=== PATIENT | male | born 1945 | race Caucasian/White ===

== ENCOUNTER 2016-11-17 15:03 | Emergency (ER) | payer MEDICARE, OTHER ==
[~2016-11-17] VITALS: Ht 172.7 cm; Wt 63.5 kg
[~2016-11-17 15:03] MED LIST: DIAZ5TAB3; IBUP600T27; PHE100C PO
[2016-11-17 18:40] VITALS: BP 133/69
== END 2016-11-17 19:10 | disposition home or self-care (01) ==
LOC: ER 15:08
DX: S01.81XA Laceration without foreign body of other part of head, initial encounter (principal); W19.XXXA Unspecified fall, initial encounter; Y93.89 Activity, other specified; Y99.8 Other external cause status; Y92.89 Other specified places as the place of occurrence of the external cause
CPT/HCPCS: 12011; 82962

== ENCOUNTER 2017-03-04 20:47 | Emergency (ER) | payer MEDICARE, OTHER ==
[~2017-03-04] VITALS: Ht 165.1 cm; Wt 59.0 kg
[2017-03-05 04:04] LABS: Basophils # (auto) 0.1 uL; Basophils % (auto) 0.8 % (0.0-2.0); Eosinophils # (auto) 0.2 uL; Eosinophils % (auto) 1.9 % (0.0-7.0); Hematocrit 37.7 % (41.0-53.0); Hemoglobin 12.9 g/dL (13.5-17.5); Lymphocytes # (auto) 2.5 uL; Lymphocytes % (auto) 24.6 % (10.0-50.0); Mean Corpuscular Hemoglobin 30.6 pg (28.0-32.0); Mean Corpuscular Hgb Conc. 34.2 g/dL (32.0-36.0); Mean Corpuscular Volume 89.5 fL (80.0-100.0); Monocytes # (auto) 1.3 uL; Monocytes % (auto) 12.3 % (0.0-12.0); Neutrophils # (auto) 6.3 uL; Neutrophils % (auto) 60.4 % (37.0-80.0); Nucleated Red Blood Cells % 0.1 %; Platelet Count (auto) 204 10^3/uL (140-450); Red Blood Cells 4.21 10^6/uL (4.5-5.90); Red Cell Distribution Width 13.8 % (11.8-14.3); White Blood Cell 10.3 10^3/uL (4.4-10.8)
[2017-03-05 04:27] LABS: Albumin 4.1 g/dL (3.4-5.0); Potassium 3.8 mmol/L (3.5-5.1)
[2017-03-05 04:34] VITALS: BP 147/74
[2017-03-05 04:35] LABS: BUN/Creatinine Ratio 22.5; Bilirubin, Total 0.4 mg/dL (0.2-1.0); Total Protein 8.3 g/dL (6.4-8.2)
[2017-03-05] MEDS ORDERED: PHENYTOIN SODIUM 100 MG CAP PO ONE (06:15)
== END 2017-03-05 06:13 | disposition home or self-care (01) ==
LOC: EDSEX 20:47 → EDBD 20:47 → ER 20:58
DX: G40.909 Epilepsy, unspecified, not intractable, without status epilepticus (principal)
CPT/HCPCS: 36415; 80053; 80185; 85025; 94761

== ENCOUNTER 2017-08-31 21:54 | Emergency (ER) | payer MEDICARE, OTHER ==
[~2017-08-31] VITALS: Ht 175.3 cm; Wt 59.0 kg
[2017-08-31] MEDS ORDERED: KETOROLAC TROMETH 30 MG/ML 1ML VIAL IV ONE (22:30)
[2017-08-31] MEDS ORDERED: ONDANSETRON HCL 4 MG/2 ML VIAL IV ONE (22:30)
[2017-08-31] MEDS ORDERED: SODIUM CHLORIDE 0.9% 1,000 ML IV ONE (22:30)
[2017-08-31] MEDS ORDERED: PANTOPRAZOLE 40 MG/10 ML VIAL IV ONE (22:30)
[2017-08-31 22:34] LABS: Basophils # (auto) 0.1 uL; Basophils % (auto) 0.6 % (0.0-2.0); Eosinophils # (auto) 0.4 uL; Eosinophils % (auto) 3.7 % (0.0-7.0); Hematocrit 35.7 % (41.0-53.0); Hemoglobin 12.1 g/dL (13.5-17.5); Lymphocytes # (auto) 2.2 uL; Lymphocytes % (auto) 22.8 % (10.0-50.0); Mean Corpuscular Hemoglobin 31.2 pg (28.0-32.0); Mean Corpuscular Hgb Conc. 33.9 g/dL (32.0-36.0); Monocytes # (auto) 1.3 uL; Monocytes % (auto) 13.1 % (0.0-12.0); Neutrophils # (auto) 5.8 uL; Neutrophils % (auto) 59.8 % (37.0-80.0); Platelet Count (auto) 164 10^3/uL (140-450); Red Blood Cells 3.87 10^6/uL (4.5-5.90); Red Cell Distribution Width 14.2 % (11.8-14.3); White Blood Cell 9.7 10^3/uL (4.4-10.8)
[2017-08-31 22:51] LABS: Albumin 3.4 g/dL (3.4-5.0); BUN/Creatinine Ratio 18.1; Bilirubin, Total 0.3 mg/dL (0.2-1.0); Calcium 8.4 mg/dL (8.5-10.1); Potassium 3.7 mmol/L (3.5-5.1); Total Protein 7.4 g/dL (6.4-8.2)
[2017-09-01 01:33] VITALS: BP 159/82
== END 2017-09-01 01:46 | disposition home or self-care (01) ==
LOC: EDBD 21:54 → ER 21:54
DX: K57.10 Diverticulosis of small intestine without perforation or abscess without bleeding (principal)
CPT/HCPCS: 36415; 74176; 80053; 85025; 96374; 96375; 99285; C9113; J1885; J2405; J7030; 93005

== ENCOUNTER 2017-10-07 10:48 | Emergency (ER) | payer MEDICARE, OTHER ==
[~2017-10-07] VITALS: Ht 177.8 cm; Wt 68.0 kg
[2017-10-07 14:18] VITALS: BP 138/69
== END 2017-10-07 14:30 | disposition home or self-care (01) ==
LOC: EDBD 10:48 → ER 10:48 → EDUNIT# 10:48 → ER 14:30
DX: S09.90XA Unspecified injury of head, initial encounter (principal); G40.909 Epilepsy, unspecified, not intractable, without status epilepticus; Z79.899 Other long term (current) drug therapy; Z86.73 Personal history of transient ischemic attack (TIA), and cerebral infarction without residual deficits; W18.39XA Other fall on same level, initial encounter; Y93.89 Activity, other specified; Y99.8 Other external cause status; Y92.89 Other specified places as the place of occurrence of the external cause
CPT/HCPCS: 70450; 73562; 82962

== ENCOUNTER 2017-10-08 12:00 | Emergency (ER) | payer MEDICARE, OTHER ==
[~2017-10-08] VITALS: Ht 172.7 cm; Wt 54.4 kg
[2017-10-08 13:58] LABS: Basophils # (auto) 0 uL; Basophils % (auto) 0.4 % (0.0-2.0); Eosinophils # (auto) 0 uL; Eosinophils % (auto) 0.1 % (0.0-7.0); Hematocrit 39.3 % (41.0-53.0); Hemoglobin 13.2 g/dL (13.5-17.5); Lymphocytes # (auto) 1.5 uL; Lymphocytes % (auto) 12.9 % (10.0-50.0); Mean Corpuscular Hemoglobin 30.7 pg (28.0-32.0); Mean Corpuscular Hgb Conc. 33.5 g/dL (32.0-36.0); Mean Corpuscular Volume 91.7 fL (80.0-100.0); Monocytes % (auto) 8.7 % (0.0-12.0); Neutrophils # (auto) 9.3 uL; Neutrophils % (auto) 77.9 % (37.0-80.0); Platelet Count (auto) 212 10^3/uL (140-450); Red Blood Cells 4.29 10^6/uL (4.5-5.90); Red Cell Distribution Width 13.6 % (11.8-14.3)
[2017-10-08 14:32] LABS: Albumin 4.3 g/dL (3.4-5.0); BUN/Creatinine Ratio 21.3; Calcium 9.2 mg/dL (8.5-10.1); Potassium 3.6 mmol/L (3.5-5.1)
[2017-10-08 14:40] LABS: Bilirubin, Total 0.5 mg/dL (0.2-1.0); Total Protein 8.9 g/dL (6.4-8.2)
[2017-10-08 15:55] VITALS: BP 93/69
== END 2017-10-08 15:47 | disposition home or self-care (01) ==
LOC: EDBD 12:00 → ER 12:00
DX: G40.909 Epilepsy, unspecified, not intractable, without status epilepticus (principal); Z86.73 Personal history of transient ischemic attack (TIA), and cerebral infarction without residual deficits
CPT/HCPCS: 36415; 70450; 80053; 80185; 85025

== ENCOUNTER 2017-11-04 13:31 | Inpatient (IN) | payer MEDICARE, OTHER ==
[~2017-11-04] VITALS: Ht 165.1 cm; Wt 44.7 kg
[2017-11-04 16:09] LABS: Basophils # (auto) 0.1 uL; Eosinophils # (auto) 0.3 uL; Eosinophils % (auto) 4.8 % (0.0-7.0); Hematocrit 35.2 % (41.0-53.0); Hemoglobin 11.8 g/dL (13.5-17.5); Lymphocytes % (auto) 30.2 % (10.0-50.0); Mean Corpuscular Hgb Conc. 33.4 g/dL (32.0-36.0); Mean Corpuscular Volume 92.8 fL (80.0-100.0); Monocytes # (auto) 0.7 uL; Neutrophils # (auto) 3.4 uL; Nucleated Red Blood Cells % 0.1 %; Platelet Count (auto) 187 10^3/uL (140-450); Red Cell Distribution Width 14.3 % (11.8-14.3); White Blood Cell 6.5 10^3/uL (4.4-10.8)
[2017-11-04 16:24] LABS: Albumin 3.6 g/dL (3.4-5.0); BUN/Creatinine Ratio 22.2; Calcium 8.5 mg/dL (8.5-10.1)
[2017-11-04 16:26] LABS: Bilirubin, Total 0.2 mg/dL (0.2-1.0); Total Protein 7.6 g/dL (6.4-8.2)
[2017-11-04] MEDS ORDERED: ONDANSETRON HCL 4 MG/2 ML VIAL IV PRN (22:00)
[2017-11-04] MEDS ORDERED: ACETAMINOPHEN 500 MG TAB PO PRN (22:00)
[2017-11-04] MEDS ORDERED: LORazepam 2MG/ML-1ML VIAL IV PRN ×2 (22:00→23:30)
[2017-11-04] MEDS ORDERED: MORPHINE SULF INJ 2 MG/ML SYRINGE 1ML IV PRN (22:00)
[2017-11-04] MEDS ORDERED: SOD CHL 0.45% 1,000 ML IV ONE (22:00)
[2017-11-04] MEDS ORDERED: HYDROcodone-ACET 5/325MG TAB PO PRN (22:00)
[2017-11-05 05:00] VITALS: BP 121/65
[2017-11-05 06:07] LABS: Basophils # (auto) 0.1 uL; Eosinophils # (auto) 0.4 uL; Eosinophils % (auto) 4.8 % (0.0-7.0); Hematocrit 34.1 % (41.0-53.0); Hemoglobin 11.5 g/dL (13.5-17.5); Lymphocytes # (auto) 1.9 uL; Lymphocytes % (auto) 26.5 % (10.0-50.0); Mean Corpuscular Hemoglobin 31.1 pg (28.0-32.0); Mean Corpuscular Hgb Conc. 33.7 g/dL (32.0-36.0); Monocytes # (auto) 0.7 uL; Monocytes % (auto) 9.3 % (0.0-12.0); Neutrophils # (auto) 4.3 uL; Neutrophils % (auto) 58.4 % (37.0-80.0); Nucleated Red Blood Cells % 0.1 %; Platelet Count (auto) 167 10^3/uL (140-450); Red Blood Cells 3.71 10^6/uL (4.5-5.90); Red Cell Distribution Width 14.2 % (11.8-14.3); White Blood Cell 7.3 10^3/uL (4.4-10.8)
[2017-11-05 06:24] LABS: BUN/Creatinine Ratio 20.7; Calcium 8.3 mg/dL (8.5-10.1); Potassium 3.8 mmol/L (3.5-5.1)
[2017-11-05] MEDS: PANTOPRAZOLE 40 MG/10 ML VIAL IV SCH (10:27)
[2017-11-05 13:00] VITALS: BP 127/63
[2017-11-05 16:54] VITALS: BP 117/63
[2017-11-05 21:48] VITALS: BP 138/61
[2017-11-06 08:29] VITALS: BP 128/58
[2017-11-06] MEDS: PANTOPRAZOLE 40 MG/10 ML VIAL IV SCH (10:00)
[2017-11-06 10:53] VITALS: BP 128/58
[2017-11-06] MEDS ORDERED: PHENYTOIN 100 MG/4 ML SUSP PO SCH (22:00)
[2017-11-06] MEDS ORDERED: PHENYTOIN SODIUM 100 MG CAP PO SCH (22:00)
== END 2017-11-06 12:44 | disposition home or self-care (01) | DRG 204 ==
LOC: EDBD 13:31 → ER 13:31 → TELE 13:32 → TELE-WESTW 23:50
PROVIDERS: ADMIT Nurse Practitioner Family; ATTEND Family Medicine
DX: R07.81 Pleurodynia (principal); I69.351 Hemiplegia and hemiparesis following cerebral infarction affecting right dominant side; G40.909 Epilepsy, unspecified, not intractable, without status epilepticus; T42.0X5A Adverse effect of hydantoin derivatives, initial encounter; G80.9 Cerebral palsy, unspecified; G51.0 Bell's palsy; F70 Mild intellectual disabilities; R29.6 Repeated falls; W06.XXXA Fall from bed, initial encounter; Y93.89 Activity, other specified; Y92.89 Other specified places as the place of occurrence of the external cause; Z82.49 Family history of ischemic heart disease and other diseases of the circulatory system; I69.322 Dysarthria following cerebral infarction; Z83.3 Family history of diabetes mellitus; Z84.89 Family history of other specified conditions; Z82.5 Family history of asthma and other chronic lower respiratory diseases; Z82.0 Family history of epilepsy and other diseases of the nervous system; Z82.3 Family history of stroke
CPT/HCPCS: 36415; 71111; 80048; 80053; 80185; 85025; 87081; 93005; 96360; C9113

== ENCOUNTER 2018-06-03 14:46 | Emergency (ER) | payer MEDICARE, OTHER ==
[~2018-06-03] VITALS: Ht 165.1 cm; Wt 59.0 kg
[2018-06-03 16:26] VITALS: BP 133/68
== END 2018-06-03 16:50 | disposition home or self-care (01) ==
LOC: EDBD 14:46 → ER 14:46
DX: S01.412A Laceration without foreign body of left cheek and temporomandibular area, initial encounter (principal); Z86.73 Personal history of transient ischemic attack (TIA), and cerebral infarction without residual deficits; Y04.2XXA Assault by strike against or bumped into by another person, initial encounter; Y93.89 Activity, other specified; Y92.89 Other specified places as the place of occurrence of the external cause; Y99.8 Other external cause status
CPT/HCPCS: 12052; 70450; 70486

== ENCOUNTER 2018-07-25 13:17 | Emergency (ER) | payer MEDICARE, OTHER ==
[~2018-07-25] VITALS: Ht 170.2 cm; Wt 74.8 kg
[2018-07-25 14:47] LABS: Basophils # (auto) 0.1 uL; Basophils % (auto) 0.9 % (0.0-2.0); Eosinophils # (auto) 0.4 uL; Eosinophils % (auto) 4.2 % (0.0-7.0); Hemoglobin 11.6 g/dL (13.5-17.5); Lymphocytes # (auto) 1.9 uL; Lymphocytes % (auto) 21.3 % (10.0-50.0); Mean Corpuscular Hemoglobin 30.2 pg (28.0-32.0); Mean Corpuscular Hgb Conc. 33.2 g/dL (32.0-36.0); Mean Corpuscular Volume 90.9 fL (80.0-100.0); Monocytes % (auto) 10.9 % (0.0-12.0); Neutrophils # (auto) 5.7 uL; Neutrophils % (auto) 62.7 % (37.0-80.0); Platelet Count (auto) 207 10^3/uL (140-450); Red Blood Cells 3.85 10^6/uL (4.5-5.90); Red Cell Distribution Width 13.6 % (11.8-14.3); White Blood Cell 9.1 10^3/uL (4.4-10.8)
[2018-07-25 14:49] VITALS: BP 122/55
[2018-07-25 15:12] LABS: Albumin 3.4 g/dL (3.4-5.0); BUN/Creatinine Ratio 18.1; Calcium 8.7 mg/dL (8.5-10.1); Potassium 3.7 mmol/L (3.5-5.1)
[2018-07-25 15:14] LABS: Bilirubin, Total 0.3 mg/dL (0.2-1.0); Total Protein 7.7 g/dL (6.4-8.2)
== END 2018-07-25 17:21 | disposition home or self-care (01) ==
LOC: EDBD 13:17 → ER 13:22
DX: S81.812A Laceration without foreign body, left lower leg, initial encounter (principal); R56.9 Unspecified convulsions; W18.39XA Other fall on same level, initial encounter; Y93.89 Activity, other specified; Y99.8 Other external cause status; Y92.89 Other specified places as the place of occurrence of the external cause
CPT/HCPCS: 36415; 73590; 73610; 80053; 80185; 85025; 93005

== ENCOUNTER 2018-08-03 13:14 | Emergency (ER) | payer MEDICARE, OTHER ==
[~2018-08-03] VITALS: Ht 160 cm; Wt 63.5 kg
[2018-08-03 16:26] VITALS: BP 146/85
== END 2018-08-03 16:28 | disposition home or self-care (01) ==
LOC: ER 13:14 → EDBD 13:14 → EDUNIT# 13:14 → ER 16:28
DX: S00.03XA Contusion of scalp, initial encounter (principal); G40.909 Epilepsy, unspecified, not intractable, without status epilepticus; W19.XXXA Unspecified fall, initial encounter; Y93.89 Activity, other specified; Y92.89 Other specified places as the place of occurrence of the external cause; Y99.8 Other external cause status
CPT/HCPCS: 70450

== ENCOUNTER 2018-08-04 17:23 | Emergency (ER) | payer MEDICARE, OTHER ==
[~2018-08-04] VITALS: Ht 160 cm; Wt 45.4 kg
[2018-08-04 18:20] LABS: Basophils # (auto) 0.1 uL; Basophils % (auto) 0.5 % (0.0-2.0); Eosinophils # (auto) 0.2 uL; Eosinophils % (auto) 1.8 % (0.0-7.0); Hematocrit 36.6 % (41.0-53.0); Hemoglobin 12.4 g/dL (13.5-17.5); Lymphocytes # (auto) 2.5 uL; Mean Corpuscular Hemoglobin 30.7 pg (28.0-32.0); Mean Corpuscular Hgb Conc. 33.7 g/dL (32.0-36.0); Mean Corpuscular Volume 90.9 fL (80.0-100.0); Monocytes # (auto) 1.2 uL; Monocytes % (auto) 9.2 % (0.0-12.0); Neutrophils % (auto) 69.5 % (37.0-80.0); Platelet Count (auto) 255 10^3/uL (140-450); Red Blood Cells 4.03 10^6/uL (4.5-5.90); Red Cell Distribution Width 13.9 % (11.8-14.3)
[2018-08-04 18:33] LABS: Chloride 107 mmol/L (98-107); INR 0.98 (0.9-1.15); Partial Thromboplastin Time 27.5 sec (23.64-32.05); Potassium 3.9 mmol/L (3.5-5.1); Sodium 143 mmol/L (136-145)
[2018-08-04 18:42] LABS: Alanine Aminotransferase 41 U/L (16-61); Albumin 3.6 g/dL (3.4-5.0); Alkaline Phosphatase 131 U/L (45-117); Anion Gap 8 (5-15); Aspartate Aminotransferase 65 U/L (15-37); BUN/Creatinine Ratio 22.8; Bilirubin, Total 0.2 mg/dL (0.2-1.0); Blood Urea Nitrogen 28 mg/dL (7-18); Calcium 8.8 mg/dL (8.5-10.1); Carbon Dioxide 28 mmol/L (21-32); GFR African American 74 mL/min; GFR Non-African American 61 mL/min; Glucose 113 mg/dL (74-106); Total Protein 8.3 g/dL (6.4-8.2)
[2018-08-04 20:00] VITALS: BP 108/85
== END 2018-08-04 20:31 | disposition home or self-care (01) ==
LOC: ER 17:31
DX: R07.89 Other chest pain (principal)
CPT/HCPCS: 36415; 71046; 80053; 84484; 85025; 85610; 85730

== ENCOUNTER 2019-03-25 10:35 | Emergency (ER) | payer MEDICARE, OTHER ==
[~2019-03-25] VITALS: Ht 170.2 cm; Wt 40.8 kg
[2019-03-25 11:00] VITALS: BP 120/55
[2019-03-25 11:40] LABS: Basophils # (auto) 0.1 uL; Basophils % (auto) 0.7 % (0.0-2.0); Eosinophils # (auto) 0.2 uL; Eosinophils % (auto) 2.1 % (0.0-7.0); Hematocrit 36.5 % (41.0-53.0); Hemoglobin 12.1 g/dL (13.5-17.5); Lymphocytes # (auto) 1.8 uL; Lymphocytes % (auto) 24.1 % (10.0-50.0); Mean Corpuscular Hemoglobin 30.3 pg (28.0-32.0); Mean Corpuscular Volume 91.8 fL (80.0-100.0); Monocytes # (auto) 0.7 uL; Monocytes % (auto) 9.3 % (0.0-12.0); Neutrophils # (auto) 4.9 uL; Neutrophils % (auto) 63.8 % (37.0-80.0); Nucleated Red Blood Cells % 0.1 %; Platelet Count (auto) 203 10^3/uL (140-450); Red Blood Cells 3.98 10^6/uL (4.5-5.90); Red Cell Distribution Width 14.4 % (11.8-14.3); White Blood Cell 7.7 10^3/uL (4.4-10.8)
[2019-03-25 11:46] LABS: Albumin 3.6 g/dL (3.4-5.0); Anion Gap 3 (5-15); Blood Urea Nitrogen 27 mg/dL (7-18); Calcium 8.6 mg/dL (8.5-10.1); Carbon Dioxide 29 mmol/L (21-32); Chloride 112 mmol/L (98-107); Glucose 113 mg/dL (74-106); Potassium 3.9 mmol/L (3.5-5.1); Sodium 144 mmol/L (136-145)
[2019-03-25 11:55] LABS: Alanine Aminotransferase 24 U/L (16-61); Alkaline Phosphatase 116 U/L (45-117); Aspartate Aminotransferase 23 U/L (15-37); Bilirubin, Total 0.2 mg/dL (0.2-1.0); GFR African American 94 mL/min; GFR Non-African American 77 mL/min; Total Protein 7.5 g/dL (6.4-8.2)
== END 2019-03-25 16:35 | disposition home or self-care (01) ==
LOC: ER 10:35 → EDBD 10:35 → ER 16:35
DX: E86.0 Dehydration (principal); R42 Dizziness and giddiness
CPT/HCPCS: 36415; 70450; 80053; 84484; 85025

== ENCOUNTER 2019-05-09 11:49 | Emergency (ER) | payer MEDICARE, OTHER ==
[~2019-05-09] VITALS: Ht 170.2 cm; Wt 63.5 kg
[2019-05-09 15:27] VITALS: BP 144/70
[2019-05-09] MEDS ORDERED: BACITRACIN TOP OINT 1 UD PKG TOP ONE (16:30)
== END 2019-05-09 16:59 | disposition home or self-care (01) ==
LOC: EDBD 11:49 → ER 11:51
DX: S01.81XA Laceration without foreign body of other part of head, initial encounter (principal); S80.212A Abrasion, left knee, initial encounter; S80.211A Abrasion, right knee, initial encounter; Z86.73 Personal history of transient ischemic attack (TIA), and cerebral infarction without residual deficits; W18.39XA Other fall on same level, initial encounter; Y93.89 Activity, other specified; Y92.89 Other specified places as the place of occurrence of the external cause; Y99.8 Other external cause status
CPT/HCPCS: 12011; 70450; 73560

== ENCOUNTER → 2019-07-29 | Emergency (ER) | payer MEDICARE, OTHER ==
[~2019-07-29] VITALS: Ht 165.1 cm; Wt 63.5 kg
[~2019-07-29] MED LIST changes: +ITRA100C2 PO; +MECL12.554 PO; +MELO1TAB73 PO
[2019-07-29 17:05] VITALS: BP 108/64
== END | disposition home or self-care (01) ==
LOC: EDUNIT# 16:58 → ER 17:04 → EDBD 17:04
DX: R42 Dizziness and giddiness (principal); M25.551 Pain in right hip

== ENCOUNTER → 2019-07-29 | Emergency (ER) | payer MEDICARE, OTHER ==
[~2019-07-29] VITALS: Ht 165.1 cm; Wt 54.4 kg
[~2019-07-29] MED LIST changes: +KETOROLAC TROMETH 30 MG/ML 1ML VIAL IV ONE
[2019-07-29 11:46] LABS: Basophils # (auto) 0.1 10 ^3/uL (0-0.2); Basophils % (auto) 0.6 % (0.0-2.0); Eosinophils # (auto) 0.1 10 ^3/uL (0-0.8); Eosinophils % (auto) 0.9 % (0.0-7.0); Hematocrit 40.8 % (41.0-53.0); Hemoglobin 13.2 g/dL (13.5-17.5); Lymphocytes # (auto) 2.1 10 ^3/uL (0.4-5.4); Lymphocytes % (auto) 13.7 % (10.0-50.0); Mean Corpuscular Hemoglobin 30.1 pg (28.0-32.0); Mean Corpuscular Hgb Conc. 32.4 g/dL (32.0-36.0); Mean Corpuscular Volume 92.8 fL (80.0-100.0); Monocytes # (auto) 1.5 10 ^3/uL (0-1.3); Monocytes % (auto) 10.3 % (0.0-12.0); Neutrophils # (auto) 11.2 10 ^3/uL (1.6-8.6); Neutrophils % (auto) 74.5 % (37.0-80.0); Nucleated Red Blood Cells % 0.1 %; Platelet Count (auto) 201 10^3/uL (140-450); Red Cell Distribution Width 14.3 % (11.8-14.3)
[2019-07-29 11:47] VITALS: BP 114/69
[2019-07-29 11:54] LABS: Albumin 3.9 g/dL (3.4-5.0); Calcium 8.6 mg/dL (8.5-10.1); Potassium 4.3 mmol/L (3.5-5.1)
[2019-07-29 11:58] LABS: BUN/Creatinine Ratio 19.1; Bilirubin, Total 0.5 mg/dL (0.2-1.0); Total Protein 8.1 g/dL (6.4-8.2)
== END | disposition home or self-care (01) ==
LOC: EDUNIT# 10:57 → EDBD 11:05 → ER 11:05
DX: M25.551 Pain in right hip (principal); R42 Dizziness and giddiness
CPT/HCPCS: 36415; 73502; 80053; 84484; 85025; 93005

== ENCOUNTER 2019-07-30 17:12 | Inpatient (IN) | payer MEDICARE, OTHER ==
[~2019-07-30] VITALS: Ht 165.1 cm; Wt 44.4 kg
[~2019-07-30 17:12] MED LIST changes: -ITRA100C2 PO; -KETOROLAC TROMETH 30 MG/ML 1ML VIAL IV ONE; -MECL12.554 PO; -MELO1TAB73 PO
[2019-07-31 02:17] LABS: Basophils # (auto) 0 10 ^3/uL (0-0.2); Basophils % (auto) 0.5 % (0.0-2.0); Eosinophils # (auto) 0.3 10 ^3/uL (0-0.8); Eosinophils % (auto) 3.2 % (0.0-7.0); Hematocrit 36.7 % (41.0-53.0); Hemoglobin 12.3 g/dL (13.5-17.5); Lymphocytes # (auto) 2.5 10 ^3/uL (0.4-5.4); Lymphocytes % (auto) 28.8 % (10.0-50.0); Mean Corpuscular Hemoglobin 30.6 pg (28.0-32.0); Mean Corpuscular Hgb Conc. 33.6 g/dL (32.0-36.0); Monocytes # (auto) 1.1 10 ^3/uL (0-1.3); Monocytes % (auto) 12.6 % (0.0-12.0); Neutrophils # (auto) 4.8 10 ^3/uL (1.6-8.6); Neutrophils % (auto) 54.9 % (37.0-80.0); Nucleated Red Blood Cells % 0.1 %; Platelet Count (auto) 163 10^3/uL (140-450); Red Blood Cells 4.03 10^6/uL (4.5-5.90); Red Cell Distribution Width 14.3 % (11.8-14.3); White Blood Cell 8.8 10^3/uL (4.4-10.8)
[2019-07-31 02:30] LABS: INR 1.11 (0.9-1.15); Partial Thromboplastin Time 30.6 sec (23.64-32.05)
[2019-07-31 02:34] LABS: Alanine Aminotransferase 16 U/L (16-61); Albumin 3.4 g/dL (3.4-5.0); Anion Gap 6 (5-15); Aspartate Aminotransferase 16 U/L (15-37); BUN/Creatinine Ratio 25.9; Blood Urea Nitrogen 28 mg/dL (7-18); Carbon Dioxide 29 mmol/L (21-32); Chloride 106 mmol/L (98-107); GFR African American 85 mL/min; GFR Non-African American 71 mL/min; Glucose 87 mg/dL (74-106); Magnesium 2.2 mg/dL (1.6-2.6); Potassium 3.5 mmol/L (3.5-5.1); Sodium 141 mmol/L (136-145)
[2019-07-31 02:39] LABS: Alkaline Phosphatase 99 U/L (45-117); Bilirubin, Total 0.3 mg/dL (0.2-1.0); Total Protein 7.3 g/dL (6.4-8.2)
[2019-07-31 04:28] LABS: Urine WBC None Seen /hpf (0 - 3)
[2019-07-31 04:45] LABS: Urine Specific Gravity 1.019 (1.001-1.035)
[2019-07-31 04:46] LABS: Urine Bacteria FEW /hpf (None Seen); Urine Blood Trace /uL (Negative); Urine Hyaline Cast 1+ /lpf (0 - 2)
[2019-07-31 04:47] LABS: Urine Mucus FEW (None Seen)
[2019-07-31] MEDS ORDERED: ACETAMINOPHEN 325 MG TAB PO PRN (07:15)
[2019-07-31] MEDS ORDERED: HYDROcodone-ACET 5/325MG TAB PO PRN (07:15)
[2019-07-31] MEDS ORDERED: DOCUSATE SOD 100 MG CAP PO PRN (07:15)
[2019-07-31] MEDS ORDERED: MORPHINE SULF INJ 2 MG/ML SYRINGE 1ML IV PRN (07:15)
[2019-07-31] MEDS ORDERED: ONDANSETRON HCL 4 MG/2 ML VIAL IV PRN (07:15)
[2019-07-31 07:56] LABS: Basophils # (auto) 0.1 10 ^3/uL (0-0.2); Eosinophils # (auto) 0.3 10 ^3/uL (0-0.8); Eosinophils % (auto) 3.1 % (0.0-7.0); Hemoglobin 11.9 g/dL (13.5-17.5); Lymphocytes # (auto) 1.8 10 ^3/uL (0.4-5.4); Lymphocytes % (auto) 21.5 % (10.0-50.0); Mean Corpuscular Hemoglobin 30.1 pg (28.0-32.0); Mean Corpuscular Hgb Conc. 33.1 g/dL (32.0-36.0); Mean Corpuscular Volume 90.9 fL (80.0-100.0); Monocytes # (auto) 0.8 10 ^3/uL (0-1.3); Monocytes % (auto) 9.9 % (0.0-12.0); Neutrophils # (auto) 5.5 10 ^3/uL (1.6-8.6); Neutrophils % (auto) 64.5 % (37.0-80.0); Platelet Count (auto) 168 10^3/uL (140-450); Red Blood Cells 3.96 10^6/uL (4.5-5.90); White Blood Cell 8.6 10^3/uL (4.4-10.8)
[2019-07-31 08:13] LABS: Calcium 8.4 mg/dL (8.5-10.1)
--- NOTE | 2019-07-31 09:43 | NUR ---
MS admit from ER JOSE ENRIQUEANGELES C admitted to tele/MS after SBAR received. Patient oriented to QING CLANCY, RN primary RN, MED-SURG unit, room 285, bed B, and unit policies regarding patient care and visiting hours. Patient weighed by bedscale and encouraged to call if they need something. All questions and concerns addressed, patient verbalized understanding.
[2019-07-31 09:48] VITALS: BP 128/66
--- NOTE | 2019-07-31 10:00 | NUR ---
FAMILY SPOKE WITH PATIENTS BROTHER YORDY SELBY AT . PATIENTS BROTHER REQUESTING INFORMATION ON FACILITY SALES AND ADMIN IN HOUSE STEWARD/STEWARDESS. PATIENTS BROTHER REQUESTING TO BE CONTACTED AT .
[2019-07-31] MEDS ORDERED: PHE100C PO (10:12)
[2019-07-31] MEDS: cefTRIAXone 1GM/50ML D5W 50 ML IV SCH (10:20)
[2019-07-31] MEDS ORDERED: ITRA100C2 PO (10:47)
[2019-07-31] MEDS ORDERED: MELO1TAB73 PO (10:47)
[2019-07-31] MEDS ORDERED: MECL12.554 PO (10:47)
--- NOTE | 2019-07-31 11:02 | NUR ---
PAGE MADE TO GRANULATOR TENDER GAMING WORKER.
--- NOTE | 2019-07-31 11:10 | NUR ---
ARTEMIO IN CASE MANAGEMENT RETURNED CALL. WILL MADE CALLS AND ARRANGEMENTS WITH PROVIDED CONTACTS. PCP TO BE ASSIGNED, ARTEMIO GOING TO CALL BACK LATER.
[2019-07-31] MEDS: ENOXAPARIN SOD 40 MG/0.4 ML SYRINGE SC SCH (12:46)
[2019-07-31 13:00] VITALS: BP 130/54
--- NOTE | 2019-07-31 13:00 | NUR ---
[facility] SWAB SENT PER PROTOCOL.
--- NOTE | 2019-07-31 16:51 | NUR ---
HIP PAIN: PATIENT C/O RIGHT HIP PAIN AND BACK PAIN, ACCORDING TO PATIENT HE FELL IN THE BATHROOM AT HOME. ASSESSED SKIN NO SIGNS OF TRAUMA NOTED. CONTACTED KWESI CALDERÓN. LUMBAR SPINE CT ORDERED. WHEN ASKED PATIENT IF HE NEEDS PAIN MEDICATIONS PATIENT STATED, "I DON'T TAKE THAT." WILL CONTINUE TO MONITOR, SITTER AT BEDSIDE.
[2019-07-31 17:00] VITALS: BP 125/75
--- NOTE | 2019-07-31 17:24 | NUR ---
PATIENT TAKEN DOWN TO CT.
--- NOTE | 2019-07-31 19:15 | NUR ---
CARE ENDORSED TO MARKUS BUCK.
--- NOTE | 2019-07-31 19:20 | NUR ---
Opening Shift Note Assumed care of patient, awake, alert and oriented x4, on room air with even and unlabored respirations, no S/S of distress/SOB or pain. Patient able to turn in bed independently, bed in lowest locked position, side rails up x2, and call light within reach. Instructed on POC and to call for assist PRN, will continue to monitor for changes Q1hr and PRN.
[2019-07-31 21:17] VITALS: BP 141/64
[2019-08-01 04:30] VITALS: BP 110/78
--- NOTE | 2019-08-01 07:30 | NUR ---
opening shift note Assumed care of patient from NOC RN Shelton. Patient is AOX4, no s/s of distress or sob noted. Bed is in lowest locked position, side rails up x2, call light within reach and safety coordinator Melba at bedside. Updated patient on plan of care, patient verbalized understanding. I will continue to monitor Q1HR and PRN.
[2019-08-01 08:49] VITALS: BP 122/79
[2019-08-01] MEDS: cefTRIAXone 1GM/50ML D5W 50 ML IV SCH (10:47)
[2019-08-01] MEDS: ENOXAPARIN SOD 40 MG/0.4 ML SYRINGE SC SCH (10:48)
[2019-08-01] MEDS ORDERED: IBUPROFEN 600 MG TAB PO PRN (12:00)
[2019-08-01] MEDS ORDERED: LORazepam 2MG/ML-1ML VIAL IV PRN (12:00)
[2019-08-01] MEDS ORDERED: PHENYTOIN SODIUM 100 MG CAP PO ONE (12:00)
[2019-08-01] MEDS ORDERED: MECLIZINE HCL 25 MG TAB PO PRN (12:00)
[2019-08-01 12:07] VITALS: BP 124/77
--- NOTE | 2019-08-01 12:18 | NUR ---
IV removal IV DC'd with clean sterile technique, catheter fully intact. Pressure dressing applied to site. Patient tolerated well.
--- NOTE | 2019-08-01 12:20 | NUR ---
IV insertion IV access obtained, via clean sterile technique by inserting 22 gauge catheter at left forearm after 2 attempts. IV secured properly. No trauma to site. Patient tolerated well.
--- NOTE | 2019-08-01 14:30 | NUR ---
IV removal IV site leaking, and patient complaining of discomfort. IV DC'd with clean sterile technique, catheter fully intact. Pressure dressing applied to site. Patient tolerated well.
--- NOTE | 2019-08-01 14:40 | NUR ---
IV insertion IV access obtained, via clean sterile technique by inserting 20G gauge catheter at left AC after 2 attempts. IV secured properly. No trauma to site. Patient tolerated well.
--- NOTE | 2019-08-01 15:20 | NUR ---
Consult (Appetite/teeth issue): po intake of 75% and 100% 07/31 per RN doc. Continue soft diet for teeth issues and will monitor po intake prn Est energy needs 1404-5846 kcal (25-30 kcal/kg IBW 62kg) Est protein needs 62-68g (1-1.1g/kg IBW 62kg) Will reassess prn. Addendum: 08/01/19 at [address] Amended: Links added.
--- NOTE | 2019-08-01 15:48 | NUR ---
paged litigation claim representative Paged litigation claim representative hospitalist regarding patient discomfort in the right hip. Awaiting call back.
[2019-08-01 16:16] VITALS: BP 126/79
--- NOTE | 2019-08-01 18:55 | NUR ---
End of shift note Endorsed care to NOC HEBER Peoples. No s/s of distress noted at this time.
--- NOTE | 2019-08-01 19:18 | NUR ---
Opening Shift Note Assumed care of patient, awake, alert and oriented x4, on room air with even and unlabored respirations, no S/S of distress/SOB or pain. Patient able turn in bed independently, bed in lowest locked position, side rails up x2, and call light within reach. Instructed on POC and to call for assist PRN, will continue to monitor for changes Q1hr and PRN.
[2019-08-01 22:00] VITALS: BP 123/84
[2019-08-01] MEDS: PHENYTOIN SODIUM 100 MG CAP PO SCH (23:26)
--- NOTE | 2019-08-02 07:50 | NUR ---
Opening Shift Note Assumed care of patient, awake and alert. No S/S of distress/SOB or pain. Instructed on POC and to call for assist PRN, will continue to monitor for changes Q1hr and PRN. Bed locked in lowest position with two side rails up and call light in reach.
[2019-08-02 09:00] VITALS: BP 115/47
[2019-08-02 09:38] LABS: Basophils # (auto) 0.1 10 ^3/uL (0-0.2); Basophils % (auto) 0.8 % (0.0-2.0); Eosinophils # (auto) 0.2 10 ^3/uL (0-0.8); Eosinophils % (auto) 3.4 % (0.0-7.0); Hemoglobin 11.9 g/dL (13.5-17.5); Lymphocytes # (auto) 1.2 10 ^3/uL (0.4-5.4); Lymphocytes % (auto) 17.1 % (10.0-50.0); Mean Corpuscular Hemoglobin 30.7 pg (28.0-32.0); Mean Corpuscular Hgb Conc. 33.1 g/dL (32.0-36.0); Mean Corpuscular Volume 92.7 fL (80.0-100.0); Monocytes # (auto) 0.5 10 ^3/uL (0-1.3); Monocytes % (auto) 6.6 % (0.0-12.0); Neutrophils % (auto) 72.1 % (37.0-80.0); Platelet Count (auto) 168 10^3/uL (140-450); Red Blood Cells 3.88 10^6/uL (4.5-5.90); Red Cell Distribution Width 14.1 % (11.8-14.3); White Blood Cell 6.9 10^3/uL (4.4-10.8)
[2019-08-02] MEDS: ENOXAPARIN SOD 40 MG/0.4 ML SYRINGE SC SCH ×3 (09:48→10:00)
[2019-08-02] MEDS: cefTRIAXone 1GM/50ML D5W 50 ML IV SCH (09:48)
[2019-08-02 09:58] LABS: Calcium 8.5 mg/dL (8.5-10.1); Potassium 3.7 mmol/L (3.5-5.1)
[2019-08-02 10:00] LABS: BUN/Creatinine Ratio 31.2
[2019-08-02 13:00] VITALS: BP 147/87
[2019-08-02 17:00] VITALS: BP 129/71
--- NOTE | 2019-08-02 19:30 | NUR ---
received report from day rn poc reviewed
--- NOTE | 2019-08-02 20:03 | NUR ---
pt very aggressive and verbally abusive giving me the middle finger and calling me the N-word, unprovoked verbal abuse, sitter at bedside, i guess this is the pts norm to nurses, apoligized for his behavior one hour later.
--- NOTE | 2019-08-02 20:35 | NUR ---
pt pulling on iv, mittens applied, reeducated pt on poc
[2019-08-02] MEDS: PHENYTOIN SODIUM 100 MG CAP PO SCH (21:41)
--- NOTE | 2019-08-02 22:00 | NUR ---
pt refused night time v/s, discussed poc with pt
--- NOTE | 2019-08-03 00:05 | NUR ---
resting quietly at this time sitter at bedside, side rails padded
[2019-08-03 05:00] VITALS: BP 157/65
--- NOTE | 2019-08-03 06:11 | NUR ---
patient refused 2200 vitals and RN was notified.
--- NOTE | 2019-08-03 06:53 | NUR ---
pt resting quietly at this time sitter at bedside for pts safety
--- NOTE | 2019-08-03 06:53 | NUR ---
report given to am nurse poc reviewed
[2019-08-03 09:00] VITALS: BP 106/55
--- NOTE | 2019-08-03 09:30 | NUR ---
Pt refused PT tx. Addendum: 08/03/19 at 1530 by David Garcia DOUBLE END TENONER OPERATOR Amended: Links added.
[2019-08-03] MEDS: ENOXAPARIN SOD 40 MG/0.4 ML SYRINGE SC SCH (10:00)
[2019-08-03] MEDS: cefTRIAXone 1GM/50ML D5W 50 ML IV SCH (10:00)
[2019-08-03 10:33] LABS: Basophils # (auto) 0.1 10 ^3/uL (0-0.2); Basophils % (auto) 0.7 % (0.0-2.0); Eosinophils # (auto) 0.3 10 ^3/uL (0-0.8); Eosinophils % (auto) 3.1 % (0.0-7.0); Hematocrit 35.9 % (41.0-53.0); Hemoglobin 11.9 g/dL (13.5-17.5); Lymphocytes # (auto) 1.4 10 ^3/uL (0.4-5.4); Lymphocytes % (auto) 17.5 % (10.0-50.0); Mean Corpuscular Hemoglobin 30.4 pg (28.0-32.0); Mean Corpuscular Hgb Conc. 33.2 g/dL (32.0-36.0); Mean Corpuscular Volume 91.4 fL (80.0-100.0); Monocytes % (auto) 12.5 % (0.0-12.0); Neutrophils # (auto) 5.4 10 ^3/uL (1.6-8.6); Neutrophils % (auto) 66.2 % (37.0-80.0); Platelet Count (auto) 184 10^3/uL (140-450); Red Blood Cells 3.93 10^6/uL (4.5-5.90); White Blood Cell 8.1 10^3/uL (4.4-10.8)
[2019-08-03 11:03] LABS: BUN/Creatinine Ratio 33.3; Calcium 8.5 mg/dL (8.5-10.1); Potassium 3.6 mmol/L (3.5-5.1)
[2019-08-03 13:00] VITALS: BP 114/56
--- NOTE | 2019-08-03 15:49 | NUR ---
assessment re: ss consults Patient is a 74 year old male who is confused. Prior to admission patient lived home alone per his brother Travis and he needed assistance. Per Travis patient has an SS caregiver. Patient is unable to care for himself at this time. Patient is very weak. Patients brother Travis is requesting SNF for rehab. Per Travis [facility] to be contacted and possible long term acute care registered nurse if needed. Patient does have a ss consult for SNF. MD order has been sent to [facility]. Per Kamla she has accepted patient to room [address] Goodwin is the accepting MD. Travis verbalized understanding and agreed to discharge plan to [facility]. Waiting on discharge now. Addendum: 08/03/19 at 1555 by Heidi JHAVERI Amended: Links added.
[2019-08-03 17:00] VITALS: BP 135/48
--- NOTE | 2019-08-03 17:27 | NUR ---
COVID SWAB ORDERED, STILL NO SWAB RECEIVED WILL CALL LAB BACK.
--- NOTE | 2019-08-03 18:18 | NUR ---
COVID SWAB SENT
[2019-08-03] MEDS: PHENYTOIN SODIUM 100 MG CAP PO SCH (21:27)
[2019-08-03 22:00] VITALS: BP 152/60
--- NOTE | 2019-08-04 05:00 | NUR ---
PATIENT REFUSED VITALS AND BLOOD DRAWS. NOTED.
[2019-08-04 08:00] VITALS: BP 128/67
[2019-08-04 09:00] VITALS: BP 128/67
[2019-08-04 09:03] LABS: Basophils # (auto) 0.1 10 ^3/uL (0-0.2); Basophils % (auto) 0.7 % (0.0-2.0); Eosinophils # (auto) 0.3 10 ^3/uL (0-0.8); Eosinophils % (auto) 3.8 % (0.0-7.0); Hematocrit 39.6 % (41.0-53.0); Hemoglobin 13.1 g/dL (13.5-17.5); Lymphocytes # (auto) 1.8 10 ^3/uL (0.4-5.4); Lymphocytes % (auto) 20.2 % (10.0-50.0); Mean Corpuscular Hemoglobin 30.6 pg (28.0-32.0); Mean Corpuscular Hgb Conc. 33.1 g/dL (32.0-36.0); Mean Corpuscular Volume 92.5 fL (80.0-100.0); Monocytes # (auto) 0.7 10 ^3/uL (0-1.3); Monocytes % (auto) 7.7 % (0.0-12.0); Neutrophils # (auto) 6.1 10 ^3/uL (1.6-8.6); Neutrophils % (auto) 67.6 % (37.0-80.0); Nucleated Red Blood Cells % 0.1 %; Platelet Count (auto) 208 10^3/uL (140-450); Red Blood Cells 4.28 10^6/uL (4.5-5.90); Red Cell Distribution Width 13.9 % (11.8-14.3)
[2019-08-04 09:25] LABS: Calcium 9.1 mg/dL (8.5-10.1); Potassium 3.7 mmol/L (3.5-5.1)
[2019-08-04 09:29] LABS: BUN/Creatinine Ratio 29.3
[2019-08-04] MEDS: ENOXAPARIN SOD 40 MG/0.4 ML SYRINGE SC SCH (10:00)
[2019-08-04] MEDS: cefTRIAXone 1GM/50ML D5W 50 ML IV SCH (10:19)
[2019-08-04 13:00] VITALS: BP 136/75
--- NOTE | 2019-08-04 15:37 | NUR ---
Nutrition Followup Notes Pt wt is 44.5 kg Pt was awake, sitting up, with no distress or complaints. Pt on a soft diet with a good appetite aeb ave 81% PO intake over 4 meals. Will continue to closely monitor pertinent labs, PO intake and skin status prn. Will followup in 3-5 days Est energy needs 3129-5361 kcal (25-30 kcal/kg IBW 62kg) Est protein needs 62-68g (1-1.1g/kg IBW 62kg) Will reassess prn. LABS: BUN 27 H, GLUC 107 H GI: Last BM noted on 08/03 per RN doc. BS: 20 low risk. Please refer to wound assessment report for full details. PES: Problem Underweight r/t pt chronic medical condition, pt unable to take care of self at home aeb 65% of IBW and BMI 14.8 Comments 1) Continue to monitor po intake to meet at least 75% of meals 2) Continue current plan of care
[2019-08-04] MEDS ORDERED: PHE100C PO (15:57)
[2019-08-04 17:00] VITALS: BP 139/81
--- NOTE | 2019-08-04 17:07 | NUR ---
re-assessment Patient is now discharged. Negative covid has been sent to [facility]. Catherine with [facility] is setting up transport now. Per Catherine [phone] she will call Anish BUCK with ETA of transport. Travis garciaer has been notified and agrees with discharge plan to [facility]. Addendum: 08/04/19 at 1711 by Heidi JHAVERI Amended: Links added.
--- NOTE | 2019-08-04 20:00 | NUR ---
patient refused physical assessment. Unable to complete skin check, and unable to check if patient has any wounds, patient refused. Educated patient on the importance for skin check and physical assessment, patient verbally acknowledge education given, and still refuses skin check and physical assessment.
[2019-08-04 21:44] VITALS: BP 134/72
--- NOTE | 2019-08-04 22:00 | NUR ---
Spoke to Tonia Carolina from [facility] to give report. Tonia advised report was already given by candy CAROLINA. Did notify to Tonia, pt is refusing physical assessment, skin check, and unable to see if patient has any wounds, pt is resistant to nursing care. patient is aox4, pt has hard time at speaking, but can understand slowly.
--- NOTE | 2019-08-04 22:15 | NUR ---
Called [facility] ambulance, and confirmed ETA is 2245. awaiting arrival.
[2019-08-04] MEDS: PHENYTOIN SODIUM 100 MG CAP PO SCH (22:28)
--- NOTE | 2019-08-04 23:40 | NUR ---
Called [facility] ambulance, and spoke to Gaetano, notified him pt was supposed to be picked up approx 2244. Gaetano advised that they running late and unable to give new ETA? notified charge nurse.
--- NOTE | 2019-08-05 01:55 | NUR ---
Pt being trans to another hosp Order obtained for transfer of ANGELES QUISPE to [facility]. Report called/given to Tonia RN by [facility] nurse. Report given to [facility] transport team. Medication reconciliation form completed and copy given to patient. Transported via wheel chair along with hospital transfer documents and all personal belongings. No distress noted on time of departure. IV taken out by day RN, and all bands taken off. All vaccines refused by patient. Family notified by day time staff of transfer. Addendum: 08/05/19 at 0202 by Preet Espana RN transfer to [facility]
== END 2019-08-05 01:55 | DRG 640 ==
LOC: ER 17:12 → EDUNIT# 17:12 → EDBD 17:12 → OVERFLOW 17:13 → WEST WING 07-31 09:41
PROVIDERS: ADMIT Hospitalist; ATTEND Internal Medicine
DX: R62.7 Adult failure to thrive (principal); E43 Unspecified severe protein-calorie malnutrition; N39.0 Urinary tract infection, site not specified; R53.1 Weakness; R42 Dizziness and giddiness; G80.9 Cerebral palsy, unspecified; G93.89 Other specified disorders of brain; D63.8 Anemia in other chronic diseases classified elsewhere; I69.920 Aphasia following unspecified cerebrovascular disease; J44.9 Chronic obstructive pulmonary disease, unspecified; G40.909 Epilepsy, unspecified, not intractable, without status epilepticus; Z81.1 Family history of alcohol abuse and dependence; Z82.61 Family history of arthritis; Z82.5 Family history of asthma and other chronic lower respiratory diseases; Z80.0 Family history of malignant neoplasm of digestive organs; Z82.49 Family history of ischemic heart disease and other diseases of the circulatory system; Z83.3 Family history of diabetes mellitus; Z80.42 Family history of malignant neoplasm of prostate; Z80.41 Family history of malignant neoplasm of ovary; Z80.1 Family history of malignant neoplasm of trachea, bronchus and lung; Z80.3 Family history of malignant neoplasm of breast; Z82.3 Family history of stroke; Z79.899 Other long term (current) drug therapy; Z11.59 Encounter for screening for other viral diseases
CPT/HCPCS: 36415; 70450; 71045; 72131; 73502; 80048; 80053; 81001; 82728; 83735; 83880; 84443; 84484; 85025; 85610; 85730; 87081; 87086; 93005; 97110; 97116; 97163; 97530; G0378; J0696

== ENCOUNTER 2019-08-25 17:39 | Emergency (ER) | payer MEDICARE, OTHER ==
[~2019-08-25] VITALS: Ht 167.6 cm; Wt 45.4 kg
[~2019-08-25 17:39] MED LIST changes: -DIAZ5TAB3; -IBUP600T27
[2019-08-25 19:05] LABS: Basophils # (auto) 0.1 10 ^3/uL (0-0.2); Basophils % (auto) 0.7 % (0.0-2.0); Eosinophils # (auto) 0.2 10 ^3/uL (0-0.8); Eosinophils % (auto) 1.7 % (0.0-7.0); Hematocrit 38.3 % (41.0-53.0); Hemoglobin 12.6 g/dL (13.5-17.5); Lymphocytes # (auto) 1.2 10 ^3/uL (0.4-5.4); Lymphocytes % (auto) 12.3 % (10.0-50.0); Mean Corpuscular Hemoglobin 30.3 pg (28.0-32.0); Mean Corpuscular Hgb Conc. 32.8 g/dL (32.0-36.0); Mean Corpuscular Volume 92.4 fL (80.0-100.0); Monocytes # (auto) 0.7 10 ^3/uL (0-1.3); Monocytes % (auto) 7.5 % (0.0-12.0); Neutrophils # (auto) 7.7 10 ^3/uL (1.6-8.6); Neutrophils % (auto) 77.8 % (37.0-80.0); Platelet Count (auto) 203 10^3/uL (140-450); Red Blood Cells 4.14 10^6/uL (4.5-5.90); Red Cell Distribution Width 14.8 % (11.8-14.3); White Blood Cell 9.9 10^3/uL (4.4-10.8)
[2019-08-25 19:22] LABS: Albumin 3.7 g/dL (3.4-5.0); Calcium 8.6 mg/dL (8.5-10.1); Potassium 3.9 mmol/L (3.5-5.1)
[2019-08-25 19:28] LABS: BUN/Creatinine Ratio 26.9; Bilirubin, Total 0.2 mg/dL (0.2-1.0); Total Protein 7.9 g/dL (6.4-8.2)
[2019-08-25 20:40] VITALS: BP 138/72
[2019-08-25] MEDS ORDERED: LIDOCAINE W/ EPINEPHRINE 2% INJ 20ML VIAL IJ ONE (21:00)
[2019-08-25] MEDS ORDERED: LIDOCAINE W/ EPINEPHRINE 1 % INJ 30ML ONE (21:03)
[2019-08-25] MEDS ORDERED: BACITRACIN TOP OINT 1 UD PKG TOP ONE (21:45)
[2019-08-26] MEDS ORDERED: LIDOCAINE 1% HCL (LOCAL ANESTH.) INJ 20ML MDV IJ ONE (00:15)
== END 2019-08-25 21:46 | disposition home or self-care (01) ==
LOC: ER 17:39 → EDBD 17:39 → ER 21:46
DX: S01.01XA Laceration without foreign body of scalp, initial encounter (principal); R93.0 Abnormal findings on diagnostic imaging of skull and head, not elsewhere classified; Z86.73 Personal history of transient ischemic attack (TIA), and cerebral infarction without residual deficits; W18.39XA Other fall on same level, initial encounter; Y93.89 Activity, other specified; Y92.89 Other specified places as the place of occurrence of the external cause; Y99.8 Other external cause status
CPT/HCPCS: 12002; 36415; 70450; 70490; 71250; 80053; 85025; 93005; 99285; J2001

== ENCOUNTER 2019-11-06 09:36 | Emergency (ER) | payer MEDICARE, OTHER ==
[~2019-11-06] VITALS: Ht 167.6 cm; Wt 59.0 kg
[2019-11-06] MEDS ORDERED: SODIUM CHLORIDE 0.9% 1,000 ML IV ONE (10:04)
[2019-11-06 10:41] LABS: Basophils # (auto) 0 10 ^3/uL (0-0.2); Basophils % (auto) 0.3 % (0.0-2.0); Eosinophils # (auto) 0 10 ^3/uL (0-0.8); Hematocrit 34.8 % (41.0-53.0); Hemoglobin 11.7 g/dL (13.5-17.5); Lymphocytes % (auto) 10.2 % (10.0-50.0); Mean Corpuscular Hemoglobin 30.6 pg (28.0-32.0); Mean Corpuscular Hgb Conc. 33.5 g/dL (32.0-36.0); Mean Corpuscular Volume 91.6 fL (80.0-100.0); Monocytes # (auto) 0.9 10 ^3/uL (0-1.3); Monocytes % (auto) 8.9 % (0.0-12.0); Neutrophils # (auto) 7.8 10 ^3/uL (1.6-8.6); Neutrophils % (auto) 80.6 % (37.0-80.0); Platelet Count (auto) 156 10^3/uL (140-450); Red Blood Cells 3.81 10^6/uL (4.5-5.90); Red Cell Distribution Width 14.1 % (11.8-14.3); White Blood Cell 9.7 10^3/uL (4.4-10.8)
[2019-11-06 10:49] LABS: Albumin 4.1 g/dL (3.4-5.0); Calcium 8.7 mg/dL (8.5-10.1); Potassium 3.6 mmol/L (3.5-5.1)
[2019-11-06 10:53] LABS: Bilirubin, Total 0.5 mg/dL (0.2-1.0); Total Protein 8.1 g/dL (6.4-8.2)
[2019-11-06 10:55] LABS: BUN/Creatinine Ratio 21.4
[2019-11-06 13:27] VITALS: BP 135/71
[2019-11-06] MEDS ORDERED: PHENYTOIN SODIUM 100 MG CAP PO ONE (14:30)
== END 2019-11-06 15:12 | disposition home or self-care (01) ==
LOC: EDBD 09:36 → ER 09:36
DX: S01.01XA Laceration without foreign body of scalp, initial encounter (principal); G80.9 Cerebral palsy, unspecified; G40.909 Epilepsy, unspecified, not intractable, without status epilepticus; N18.3 Chronic kidney disease, stage 3 (moderate); R89.2 Abnormal level of other drugs, medicaments and biological substances in specimens from other organs, systems and tissues; Z86.73 Personal history of transient ischemic attack (TIA), and cerebral infarction without residual deficits; W19.XXXA Unspecified fall, initial encounter; Y93.89 Activity, other specified; Y92.89 Other specified places as the place of occurrence of the external cause; Y99.8 Other external cause status
CPT/HCPCS: 12002; 36415; 70450; 80053; 80185; 83735; 84443; 85025; 93005; 99285; J7030

== ENCOUNTER 2019-12-08 19:13 | Inpatient (IN) | payer MEDICARE, OTHER ==
[~2019-12-08] VITALS: Ht 170.2 cm; Wt 47.8 kg
[2019-12-08 20:04] LABS: Basophils # (auto) 0.1 10 ^3/uL (0-0.2); Eosinophils # (auto) 0.3 10 ^3/uL (0-0.8); Eosinophils % (auto) 3.6 % (0.0-7.0); Hematocrit 33.5 % (41.0-53.0); Hemoglobin 11.3 g/dL (13.5-17.5); Lymphocytes # (auto) 1.9 10 ^3/uL (0.4-5.4); Lymphocytes % (auto) 20.6 % (10.0-50.0); Mean Corpuscular Hemoglobin 31.3 pg (28.0-32.0); Mean Corpuscular Hgb Conc. 33.8 g/dL (32.0-36.0); Mean Corpuscular Volume 92.6 fL (80.0-100.0); Monocytes # (auto) 0.7 10 ^3/uL (0-1.3); Monocytes % (auto) 7.1 % (0.0-12.0); Neutrophils # (auto) 6.3 10 ^3/uL (1.6-8.6); Neutrophils % (auto) 67.7 % (37.0-80.0); Nucleated Red Blood Cells % 0.1 %; Platelet Count (auto) 169 10^3/uL (140-450); Red Blood Cells 3.61 10^6/uL (4.5-5.90); Red Cell Distribution Width 15.3 % (11.8-14.3); White Blood Cell 9.3 10^3/uL (4.4-10.8)
[2019-12-08 20:09] LABS: Albumin 3.8 g/dL (3.4-5.0); BUN/Creatinine Ratio 31.7; Potassium 3.6 mmol/L (3.5-5.1)
[2019-12-08 20:12] LABS: Bilirubin, Total 0.2 mg/dL (0.2-1.0); Total Protein 7.5 g/dL (6.4-8.2)
[2019-12-08] MEDS ORDERED: ONDANSETRON HCL 4 MG/2 ML VIAL IV ONE (20:15)
[2019-12-08] MEDS ORDERED: SODIUM CHLORIDE 0.9% 500 ML IV ONE (20:15)
[2019-12-08] MEDS ORDERED: MORPHINE SULF INJ 2 MG/ML SYRINGE 1ML IV ONE (20:15)
[2019-12-08] MEDS ORDERED: NITROGLYCERIN 0.4 MG SL TAB SL PRN (22:45)
[2019-12-08] MEDS ORDERED: LORazepam 2MG/ML-1ML VIAL IV PRN (22:45)
[2019-12-08] MEDS ORDERED: ONDANSETRON HCL 4 MG/2 ML VIAL IV PRN (22:45)
[2019-12-08] MEDS ORDERED: ACETAMINOPHEN 325 MG TAB PO PRN (22:45)
[2019-12-08] MEDS ORDERED: MORPHINE SULF INJ 2 MG/ML SYRINGE 1ML IV PRN (22:45)
[2019-12-08] MEDS ORDERED: TEMAZEPAM 15 MG CAP PO PRN (22:45)
--- NOTE | 2019-12-08 23:54 | NUR ---
Assumed care of pt, who is non verbal but makes gestures. Pt is fully clothed and does not want his clothes removed, but let me take his shoes off. Pt has approx 3 rubber bands around each ankle and the ER staff states he wants them to stay because they help keep his socks up? Pt will not let me remove the rubber bands. Pt also has a wallet at bedside but will not let me touch it. Pt does not appear to be in any distress, has tele box 61 and patent IV. Side rails padded for safety r/t sz precautions. Will attempt to contact caregiver to answer admission questions.
--- NOTE | 2019-12-09 04:35 | NUR ---
pt continues to refuse having his clothes removed, refused bed bath and although he allowed the MUCK HAULER to remove his socks he is asking to have them put back on. Will continue to encourage pt to allow cares to be given.
[2019-12-09 05:00] VITALS: BP 137/74
--- NOTE | 2019-12-09 05:04 | NUR ---
Pt asked for help to bedside commode, able to pivot, but very weak, states he has cerebral palsy and it has effected his right side, evidenced by contracture and muscle atrophy. Pt took off his shorts with prompting and this flex o writer operator noted both pockets full. When asked what he had in his pockets he said everything. Pt will not allow shorts or wallet to be removed from his bedside. Pt also states he has to have 2 of everything. Pt is wearing 2 pair of underwear, and is requesting a second pair of hospital booties. Pt also takes his fluids with thick
--- NOTE | 2019-12-09 05:55 | NUR ---
Pt assisted again to bedside commode, will use call light to ask for assistance.
[2019-12-09 06:41] LABS: Basophils # (auto) 0.1 10 ^3/uL (0-0.2); Basophils % (auto) 0.7 % (0.0-2.0); Eosinophils # (auto) 0.3 10 ^3/uL (0-0.8); Eosinophils % (auto) 3.8 % (0.0-7.0); Hematocrit 35.5 % (41.0-53.0); Hemoglobin 11.7 g/dL (13.5-17.5); Lymphocytes # (auto) 1.5 10 ^3/uL (0.4-5.4); Lymphocytes % (auto) 19.4 % (10.0-50.0); Mean Corpuscular Hemoglobin 31.4 pg (28.0-32.0); Mean Corpuscular Volume 95.1 fL (80.0-100.0); Monocytes # (auto) 0.8 10 ^3/uL (0-1.3); Monocytes % (auto) 9.7 % (0.0-12.0); Neutrophils # (auto) 5.2 10 ^3/uL (1.6-8.6); Neutrophils % (auto) 66.4 % (37.0-80.0); Platelet Count (auto) 158 10^3/uL (140-450); Red Blood Cells 3.73 10^6/uL (4.5-5.90); Red Cell Distribution Width 15.6 % (11.8-14.3); White Blood Cell 7.8 10^3/uL (4.4-10.8)
[2019-12-09 06:52] LABS: BUN/Creatinine Ratio 29.3; Calcium 8.6 mg/dL (8.5-10.1)
[2019-12-09 09:00] VITALS: BP 132/67
[2019-12-09] MEDS: FAMOTIDINE 20 MG TAB PO SCH ×2 (10:27→22:00)
[2019-12-09] MEDS: ENOXAPARIN SOD 40 MG/0.4 ML SYRINGE SC SCH (10:28)
--- NOTE | 2019-12-09 11:05 | NUR ---
PLACED PT. ON 15LPM NRB FOR SMALL RIGHT PNEUMOTHORAX, PER DR. AGUILAR'S ORDERS. PT'S SATURATION IS 100%. Addendum: 12/09/19 at 1116 by Ana Shepherd RT Amended: Links added.
[2019-12-09 13:00] VITALS: BP 106/68
--- NOTE | 2019-12-09 16:20 | NUR ---
Pt is an alert and oriented male that resides home alone. Pt has a brother, Travis, in the area that is supportive. Pt has a [facility] caregiver, Pat ([phone]) that helps with meals, personal needs, and transportation. Pt has a speech impediment and uses sign and writings to communicate. Pt expressed he wants to go home upon discharge and that Pat can transport him home. Addendum: 12/09/19 at 1631 by RAJIV JHAVERI Amended: Links added.
[2019-12-09 17:00] VITALS: BP 136/70
--- NOTE | 2019-12-09 17:15 | NUR ---
SWALLOW EVALUATED. PATIENT IS APHASIC. RIGHT SIDE WEAKNESS DUE TO CP. PATIENT HAS NATURAL TEETH. ABLE TO FOLLOW DIRECTIONS. PT IS ABLE TO TOLERATE PUREE DIET TEXTURE WITH THIN LIQUIDS WITH NO OVERT SIGNS OR SYMPTOMS OF ASPIRATION. NURSING NOTIFIED.
--- NOTE | 2019-12-09 19:10 | NUR ---
Opening Shift Note Assumed care of patient, awake, alert and oriented x4, on room air with even and unlabored respirations, no S/S of distress/SOB or pain. Patient able to turn in bed independently, bed in lowest locked position, side rails up x2, call light within reach, and seizure precautions in place. Instructed on POC and to call for assist PRN, will continue to monitor for changes Q1hr and PRN.
[2019-12-09] MEDS: HYDROcodone-ACET 5/325MG TAB PO PRN (19:56)
[2019-12-09 22:00] VITALS: BP 116/59
[2019-12-09] MEDS: PHENYTOIN SODIUM 100 MG CAP PO SCH (22:04)
[2019-12-10 05:00] VITALS: BP 119/59
--- NOTE | 2019-12-10 07:30 | NUR ---
Opening Shift Note Assumed care of patient, awake and alert. No S/S of distress/SOB or pain. Instructed on POC and to call for assist PRN, will continue to monitor for changes Q1hr and PRN. Fall precautions in place per safety protocol.
[2019-12-10 09:00] VITALS: BP 103/54
[2019-12-10] MEDS: FAMOTIDINE 20 MG TAB PO SCH ×2 (09:14→21:34)
[2019-12-10] MEDS: ENOXAPARIN SOD 40 MG/0.4 ML SYRINGE SC SCH (09:14)
--- NOTE | 2019-12-10 10:38 | NUR ---
Hospitalist MD Healy at bedside, aware of patient status. No new orders received at this time. MD Healy suggested patient to go to jail, however, patient is refusing and requesting to be discharged home. Per MD Healy patient will stay another night for observation. Will cont to monitor patient.
[2019-12-10 12:55] VITALS: BP 110/52
[2019-12-10 17:00] VITALS: BP 122/72
[2019-12-10] MEDS: PHENYTOIN SODIUM 100 MG CAP PO SCH (21:34)
[2019-12-10] MEDS: HYDROcodone-ACET 5/325MG TAB PO PRN (21:35)
[2019-12-10 22:04] VITALS: BP 130/72
--- NOTE | 2019-12-11 08:20 | NUR ---
SPOKE TO Yandel LR , EXPLAINED THAT PT'S RA SP02 96% AND PT. IS REFUSING AN ABG AT THIS TIME. OK TO DC. ABG , PER Yandel LR
[2019-12-11 09:00] VITALS: BP 113/58
[2019-12-11] MEDS: ENOXAPARIN SOD 40 MG/0.4 ML SYRINGE SC SCH (09:23)
[2019-12-11] MEDS: FAMOTIDINE 20 MG TAB PO SCH (09:23)
--- NOTE | 2019-12-11 09:30 | NUR ---
Hospitalist MD Healy at bedside, aware of patient status. New orders for DC received. Will carryout new orders. Per MD Healy, he spoke with MD Garcia in regards to discharge and patient has been cleared from pulmonology standpoint.
[2019-12-11 10:14] VITALS: BP 113/53
--- NOTE | 2019-12-11 12:46 | NUR ---
Discharge instructions given as ordered. Encourage to follow up with PMD as instructed. All questions and concerns addressed. Patient verbalized understanding. Medication reconciliation form completed and copy given to patient. IV removed with catheter intact, pressure dressing applied. Telemetry unit returned to ICU. Patient taken to taxi via wheelchair with all personal belongings, accompanied by staff. ISHAAN Roque aware of patient DC orders. No distress noted at time of departure.
== END 2019-12-11 12:38 | disposition home or self-care (01) | DRG 200 ==
LOC: EDBD 19:13 → ER 19:18 → TELE 19:19 → TELE-WESTW 23:50
PROVIDERS: ADMIT Nurse Practitioner; ATTEND Family Medicine
DX: S27.0XXA Traumatic pneumothorax, initial encounter (principal); S22.41XA Multiple fractures of ribs, right side, initial encounter for closed fracture; E46 Unspecified protein-calorie malnutrition; J98.11 Atelectasis; Z68.1 Body mass index [BMI] 19.9 or less, adult; R62.7 Adult failure to thrive; S73.101A Unspecified sprain of right hip, initial encounter; R91.1 Solitary pulmonary nodule; W18.30XA Fall on same level, unspecified, initial encounter; G80.9 Cerebral palsy, unspecified; Z82.61 Family history of arthritis; Z83.3 Family history of diabetes mellitus; Z80.3 Family history of malignant neoplasm of breast; Z80.1 Family history of malignant neoplasm of trachea, bronchus and lung; Z81.8 Family history of other mental and behavioral disorders; Z82.49 Family history of ischemic heart disease and other diseases of the circulatory system; Z82.3 Family history of stroke; Y93.89 Activity, other specified; Y92.009 Unspecified place in unspecified non-institutional (private) residence as the place of occurrence of the external cause; Y99.0 Civilian activity done for income or pay
CPT/HCPCS: 36415; 71045; 71250; 72192; 80048; 80053; 80185; 85025; 92610; G0378; J2405

== ENCOUNTER → 2020-05-17 | Outpatient (CLI) | payer MEDICARE, OTHER | END | disposition home or self-care (01) | LOC: LAB 12:45 | PROVIDERS: ATTEND Internal Medicine Pulmonary Disease | DX: Z01.812 Encounter for preprocedural laboratory examination (principal); Z20.822 Contact with and (suspected) exposure to COVID-19 | CPT/HCPCS: 36415; 87426 ==

== ENCOUNTER 2020-06-10 14:30 | Emergency (ER) | payer MEDICARE, OTHER ==
[~2020-06-10] VITALS: Ht 162.6 cm; Wt 54.4 kg
[2020-06-10 14:36] VITALS: BP 140/68
== END 2020-06-10 16:49 | disposition home or self-care (01) ==
LOC: ER 14:30 → EDBD 14:30 → ER 16:49
DX: S80.262A Insect bite (nonvenomous), left knee, initial encounter (principal); S40.862A Insect bite (nonvenomous) of left upper arm, initial encounter; Z86.73 Personal history of transient ischemic attack (TIA), and cerebral infarction without residual deficits; W57.XXXA Bitten or stung by nonvenomous insect and other nonvenomous arthropods, initial encounter; Y93.89 Activity, other specified; Y92.89 Other specified places as the place of occurrence of the external cause; Y99.8 Other external cause status

== ENCOUNTER 2020-08-09 18:04 | Emergency (ER) | payer MEDICARE, OTHER ==
[~2020-08-09] VITALS: Ht 162.6 cm; Wt 54.4 kg
[2020-08-09 18:59] LABS: Basophils # (auto) 0.1 10 ^3/uL (0-0.2); Basophils % (auto) 0.6 % (0.0-2.0); Eosinophils # (auto) 0.2 10 ^3/uL (0-0.8); Eosinophils % (auto) 2.4 % (0.0-7.0); Hematocrit 34.7 % (41.0-53.0); Lymphocytes # (auto) 1.6 10 ^3/uL (0.4-5.4); Lymphocytes % (auto) 18.7 % (10.0-50.0); Mean Corpuscular Hemoglobin 31.7 pg (28.0-32.0); Mean Corpuscular Hgb Conc. 34.6 g/dL (32.0-36.0); Mean Corpuscular Volume 91.8 fL (80.0-100.0); Monocytes # (auto) 0.8 10 ^3/uL (0-1.3); Monocytes % (auto) 9.7 % (0.0-12.0); Neutrophils # (auto) 5.9 10 ^3/uL (1.6-8.6); Neutrophils % (auto) 68.6 % (37.0-80.0); Platelet Count (auto) 181 10^3/uL (140-450); Red Blood Cells 3.78 10^6/uL (4.5-5.90); White Blood Cell 8.5 10^3/uL (4.4-10.8)
[2020-08-09 19:11] LABS: INR 1.08 (0.9-1.15)
[2020-08-09 19:22] LABS: Alanine Aminotransferase 25 U/L (16-61); Anion Gap 5 (5-15); Aspartate Aminotransferase 21 U/L (15-37); BUN/Creatinine Ratio 22.2; Blood Urea Nitrogen 26 mg/dL (7-18); Calcium 8.8 mg/dL (8.5-10.1); Carbon Dioxide 26 mmol/L (21-32); Chloride 112 mmol/L (98-107); GFR African American 78 mL/min; GFR Non-African American 64 mL/min; Glucose 101 mg/dL (74-106); Potassium 3.9 mmol/L (3.5-5.1); Sodium 143 mmol/L (136-145)
[2020-08-09 19:26] LABS: Alkaline Phosphatase 114 U/L (45-117); Bilirubin, Total 0.3 mg/dL (0.2-1.0); Total Protein 8.4 g/dL (6.4-8.2)
[2020-08-09] MEDS ORDERED: ACETAMINOPHEN/CODEINE#3 (300/30mg) TAB PO ONE (21:30)
[2020-08-09] MEDS ORDERED: cefTRIAXone SOD 1,000 MG VL IM ONE (21:30)
[2020-08-09] MEDS ORDERED: ONDANSETRON ODT 4 MG TAB PO ONE (21:30)
[2020-08-09] MEDS ORDERED: BACITRACIN TOP OINT 1 UD PKG TOP ONE (21:30)
[2020-08-10 05:50] VITALS: BP 111/92
== END 2020-08-10 09:00 | disposition home or self-care (01) ==
LOC: EDBD 18:04 → ER 18:06
DX: S01.91XA Laceration without foreign body of unspecified part of head, initial encounter (principal); S51.012A Laceration without foreign body of left elbow, initial encounter; S51.011A Laceration without foreign body of right elbow, initial encounter; Z86.73 Personal history of transient ischemic attack (TIA), and cerebral infarction without residual deficits; W19.XXXA Unspecified fall, initial encounter; Y93.89 Activity, other specified; Y92.89 Other specified places as the place of occurrence of the external cause; Y99.8 Other external cause status
CPT/HCPCS: 12013; 36415; 70450; 80053; 85025; 85610

== ENCOUNTER 2021-02-06 15:22 | Emergency (ER) | payer MEDICARE, OTHER ==
[~2021-02-06] VITALS: Ht 170.2 cm; Wt 59.9 kg
[2021-02-06] MEDS ORDERED: LORazepam 2MG/ML-1ML VIAL IV ONE (15:30)
[2021-02-06 16:50] LABS: Basophils # (auto) 0.1 10 ^3/uL (0-0.2); Basophils % (auto) 0.7 % (0.0-2.0); Eosinophils # (auto) 0.2 10 ^3/uL (0-0.8); Eosinophils % (auto) 1.7 % (0.0-7.0); Hemoglobin 12.6 g/dL (13.5-17.5); Lymphocytes # (auto) 1.7 10 ^3/uL (0.4-5.4); Lymphocytes % (auto) 18.9 % (10.0-50.0); Mean Corpuscular Hemoglobin 30.1 pg (28.0-32.0); Mean Corpuscular Hgb Conc. 33.2 g/dL (32.0-36.0); Mean Corpuscular Volume 90.5 fL (80.0-100.0); Monocytes # (auto) 0.7 10 ^3/uL (0-1.3); Monocytes % (auto) 7.9 % (0.0-12.0); Neutrophils # (auto) 6.4 10 ^3/uL (1.6-8.6); Neutrophils % (auto) 70.8 % (37.0-80.0); Red Blood Cells 4.19 10^6/uL (4.5-5.90); Red Cell Distribution Width 14.8 % (11.8-14.3); White Blood Cell 9.1 10^3/uL (4.4-10.8)
[2021-02-06 17:13] LABS: Albumin 3.9 g/dL (3.4-5.0); BUN/Creatinine Ratio 21.6; Calcium 8.8 mg/dL (8.5-10.1); Potassium 4.1 mmol/L (3.5-5.1)
[2021-02-06 17:16] LABS: Bilirubin, Total 0.4 mg/dL (0.2-1.0); Total Protein 7.9 g/dL (6.4-8.2)
[2021-02-06] MEDS ORDERED: PHENYTOIN SODIUM 100 MG CAP PO ONE (17:45)
[2021-02-06] MEDS ORDERED: PHENYTOIN IV DILANTIN 400 MG in SODIUM CHL 0.9% 100 ML IV ONE (17:45)
[2021-02-06 23:00] VITALS: BP 129/62
== END 2021-02-06 17:37 | disposition home or self-care (01) ==
LOC: ER 15:22 → EDBD 15:22 → ER 17:37
DX: R56.9 Unspecified convulsions (principal); R89.2 Abnormal level of other drugs, medicaments and biological substances in specimens from other organs, systems and tissues; Z79.899 Other long term (current) drug therapy
CPT/HCPCS: 36415; 70450; 80053; 80185; 85025; 96365; 96375; 99284; J1165; J2060

== ENCOUNTER 2021-02-23 14:18 | Emergency (ER) | payer MEDICARE, OTHER ==
[~2021-02-23] VITALS: Ht 172.7 cm; Wt 45.4 kg
[2021-02-23] MEDS ORDERED: cloNIDine HCL 0.1 MG TAB PO ONE (14:45)
[2021-02-23 19:20] VITALS: BP 139/91
== END 2021-02-23 19:22 | disposition home or self-care (01) ==
LOC: EDUNIT# 14:18 → EDBD 14:18 → ER 14:18
DX: S09.8XXA Other specified injuries of head, initial encounter (principal); I10 Essential (primary) hypertension; Z86.73 Personal history of transient ischemic attack (TIA), and cerebral infarction without residual deficits; W18.09XA Striking against other object with subsequent fall, initial encounter; Y93.89 Activity, other specified; Y92.89 Other specified places as the place of occurrence of the external cause; Y99.8 Other external cause status
CPT/HCPCS: 70450

== ENCOUNTER 2021-05-13 17:12 | Inpatient (IN) | payer MEDICARE, OTHER ==
[~2021-05-13] VITALS: Ht 162.6 cm; Wt 42.2 kg
[2021-05-13] MEDS ORDERED: HYDROcodone-ACET 5/325MG TAB PO ONE (23:15)
[2021-05-14 01:48] LABS: Basophils # (auto) 0.1 10 ^3/uL (0-0.2); Eosinophils # (auto) 0.4 10 ^3/uL (0-0.8); Eosinophils % (auto) 3.8 % (0.0-7.0); Hematocrit 37.9 % (41.0-53.0); Hemoglobin 13.2 g/dL (13.5-17.5); Lymphocytes # (auto) 2.1 10 ^3/uL (0.4-5.4); Mean Corpuscular Hemoglobin 31.4 pg (28.0-32.0); Mean Corpuscular Hgb Conc. 34.7 g/dL (32.0-36.0); Mean Corpuscular Volume 90.6 fL (80.0-100.0); Monocytes # (auto) 0.8 10 ^3/uL (0-1.3); Monocytes % (auto) 8.7 % (0.0-12.0); Neutrophils # (auto) 6.1 10 ^3/uL (1.6-8.6); Neutrophils % (auto) 64.5 % (37.0-80.0); Red Blood Cells 4.19 10^6/uL (4.5-5.90); Red Cell Distribution Width 14.3 % (11.8-14.3); White Blood Cell 9.5 10^3/uL (4.4-10.8)
[2021-05-14 02:02] LABS: Albumin 4.1 g/dL (3.4-5.0); BUN/Creatinine Ratio 29.4; Calcium 9.6 mg/dL (8.5-10.1); Potassium 3.9 mmol/L (3.5-5.1)
[2021-05-14 02:12] LABS: Bilirubin, Total 0.2 mg/dL (0.2-1.0); Total Protein 8.7 g/dL (6.4-8.2)
[2021-05-14] MEDS ORDERED: LORazepam 2MG/ML-1ML VIAL ONE (03:42)
[2021-05-14] MEDS ORDERED: LORazepam 2MG/ML-1ML VIAL IV ONE (03:45)
[2021-05-14] MEDS ORDERED: MORPHINE SULFATE INJECTION 2 MG/ML SYRG IV PRN (04:15)
[2021-05-14] MEDS ORDERED: NITROGLYCERIN 0.4 MG SL TAB SL PRN (04:15)
[2021-05-14] MEDS: SODIUM CHLORIDE 0.9% 1,000 ML IV SCH ×2 (04:42→20:55)
[2021-05-14 09:24] VITALS: BP 166/60
[2021-05-14] MEDS ORDERED: hydrALAZINE HCL 20 MG/ML VL IV PRN (11:45)
[2021-05-14] MEDS ORDERED: LISINOPRIL 10 MG TAB PO ONE (11:45)
[2021-05-14] MEDS ORDERED: PHENYTOIN IV DILANTIN 500 MG in SODIUM CHL 0.9% 100 ML IV ONE (12:15)
[2021-05-14 13:00] VITALS: BP 169/71
[2021-05-14 17:00] VITALS: BP 147/35
[2021-05-14] MEDS ORDERED: LORazepam 2MG/ML-1ML VIAL IV PRN (20:30)
[2021-05-14 22:00] VITALS: BP 106/51
[2021-05-15 04:30] VITALS: BP 106/47
[2021-05-15] MEDS ORDERED: HALOPERIDOL LACTATE 5 MG/ML INJ VIAL ONE (05:17)
[2021-05-15] MEDS ORDERED: HALOPERIDOL LACTATE 5 MG/ML INJ VIAL IM PRN (05:30)
[2021-05-15 08:05] VITALS: BP 106/48
[2021-05-15] MEDS ORDERED: LISINOPRIL 10 MG TAB PO SCH (10:00)
[2021-05-15] MEDS ORDERED: PHE100C PO (10:05)
[2021-05-15 11:24] VITALS: BP 106/48
== END 2021-05-15 13:05 | disposition home health service (06) | DRG 312 ==
LOC: ER 17:12 → EDBD 17:12 → EDUNIT# 17:12 → TELE 05-14 04:08 → TELE-CENTR 05-14 09:00 → TELE 05-14 15:18 → TELE-CENTR 05-14 15:28
PROVIDERS: ADMIT Internal Medicine; ATTEND Family Medicine
PROC: 0HQ0XZZ Repair Scalp Skin, External Approach (ICD-10-PCS; principal; 2021-05-13)
DX: R55 Syncope and collapse (principal); R47.01 Aphasia; S01.01XA Laceration without foreign body of scalp, initial encounter; F79 Unspecified intellectual disabilities; G40.909 Epilepsy, unspecified, not intractable, without status epilepticus; G80.9 Cerebral palsy, unspecified; G93.89 Other specified disorders of brain; I10 Essential (primary) hypertension; R47.1 Dysarthria and anarthria; I49.9 Cardiac arrhythmia, unspecified; Z20.822 Contact with and (suspected) exposure to COVID-19; W18.39XA Other fall on same level, initial encounter; S80.211A Abrasion, right knee, initial encounter; Z80.1 Family history of malignant neoplasm of trachea, bronchus and lung; Z80.3 Family history of malignant neoplasm of breast; Z80.42 Family history of malignant neoplasm of prostate; Z80.8 Family history of malignant neoplasm of other organs or systems; Z81.8 Family history of other mental and behavioral disorders; Z82.0 Family history of epilepsy and other diseases of the nervous system; Z82.3 Family history of stroke; Z82.49 Family history of ischemic heart disease and other diseases of the circulatory system; Z82.5 Family history of asthma and other chronic lower respiratory diseases; Z82.62 Family history of osteoporosis; Z83.3 Family history of diabetes mellitus; Y93.89 Activity, other specified; Y92.098 Other place in other non-institutional residence as the place of occurrence of the external cause; Y99.8 Other external cause status; Z86.73 Personal history of transient ischemic attack (TIA), and cerebral infarction without residual deficits
CPT/HCPCS: 12002; 36415; 70450; 71045; 72125; 80053; 80185; 83735; 84484; 85025; 87426; 93306; 93886; 95819; 96361; 96374; G0378

== ENCOUNTER 2021-07-09 19:48 | Emergency (ER) | payer MEDICARE, OTHER ==
[~2021-07-09] VITALS: Ht 167.6 cm; Wt 44.5 kg
[2021-07-09 19:48] VITALS: BP 123/65
== END 2021-07-10 00:39 | disposition left against medical advice (07) ==
LOC: EDUNIT# 19:48 → ER 19:48 → EDBD 19:48 → ER 07-10 00:39
DX: H57.11 Ocular pain, right eye (principal); Z53.21 Procedure and treatment not carried out due to patient leaving prior to being seen by health care provider

== ENCOUNTER 2021-08-04 12:47 | Emergency (ER) | payer MEDICARE, OTHER ==
[~2021-08-04] VITALS: Ht 170.2 cm; Wt 54.4 kg
[2021-08-04 15:27] VITALS: BP 166/80
== END 2021-08-04 21:00 | disposition left against medical advice (07) ==
LOC: EDBD 12:47 → ER 12:47
DX: R56.9 Unspecified convulsions (principal); R41.82 Altered mental status, unspecified; I10 Essential (primary) hypertension; Z86.73 Personal history of transient ischemic attack (TIA), and cerebral infarction without residual deficits

== ENCOUNTER 2021-10-12 13:42 | Emergency (ER) | payer MEDICARE, OTHER ==
[~2021-10-12] VITALS: Ht 167.6 cm; Wt 68.0 kg
[2021-10-12 14:20] VITALS: BP 134/58
[2021-10-12] MEDS ORDERED: DERMOPLAST 60ML BOTTLE TOP ONE (15:15)
== END 2021-10-12 18:10 | disposition home or self-care (01) ==
LOC: EDBD 13:42 → ER 13:42
DX: S01.01XA Laceration without foreign body of scalp, initial encounter (principal); I10 Essential (primary) hypertension; Z86.73 Personal history of transient ischemic attack (TIA), and cerebral infarction without residual deficits; Z79.899 Other long term (current) drug therapy; W19.XXXA Unspecified fall, initial encounter; Y93.89 Activity, other specified; Y92.89 Other specified places as the place of occurrence of the external cause; Y99.8 Other external cause status
CPT/HCPCS: 12001; 70450

== ENCOUNTER 2022-03-21 10:16 | Emergency (ER) | payer MEDICARE, OTHER ==
[~2022-03-21] VITALS: Ht 172.7 cm; Wt 59.0 kg
[2022-03-21] MEDS ORDERED: cefTRIAXone SOD 1,000 MG VL IM ONE (13:30)
[2022-03-21] MEDS ORDERED: cefTRIAXone 1GM/50ML D5W 50 ML IV ONE (13:45)
[2022-03-21 14:00] VITALS: BP 136/73
== END 2022-03-21 15:14 | disposition home or self-care (01) ==
LOC: ER 10:16 → EDBD 10:16 → ER 15:14
DX: S01.01XA Laceration without foreign body of scalp, initial encounter (principal); I10 Essential (primary) hypertension; Z86.73 Personal history of transient ischemic attack (TIA), and cerebral infarction without residual deficits; W18.39XA Other fall on same level, initial encounter; Y93.89 Activity, other specified; Y92.89 Other specified places as the place of occurrence of the external cause; Y99.8 Other external cause status
CPT/HCPCS: 12002; 70450; 93005; 96365; 99284; J0696

== ENCOUNTER 2022-06-13 11:44 | Emergency (ER) | payer MEDICARE, OTHER ==
[~2022-06-13] VITALS: Ht 185.4 cm; Wt 77.2 kg
[2022-06-13 15:00] VITALS: BP 112/64
== END 2022-06-13 17:40 | disposition home or self-care (01) ==
LOC: ER 11:44 → EDBD 11:44 → ER 17:40
DX: R56.9 Unspecified convulsions (principal); I10 Essential (primary) hypertension; Z79.899 Other long term (current) drug therapy
CPT/HCPCS: 82962

== ENCOUNTER 2022-08-23 13:23 | Emergency (ER) | payer MEDICARE, OTHER ==
[~2022-08-23] VITALS: Ht 172.7 cm; Wt 44.8 kg
[~2022-08-23 13:23] MED LIST changes: -PHE100C PO; +PHEN1CAP60 PO
[2022-08-23 15:48] VITALS: BP 125/53
== END 2022-08-23 18:01 | disposition home or self-care (01) ==
LOC: ER 13:23
DX: S01.00XA Unspecified open wound of scalp, initial encounter (principal); I10 Essential (primary) hypertension; Z86.73 Personal history of transient ischemic attack (TIA), and cerebral infarction without residual deficits; Z88.6 Allergy status to analgesic agent; W18.09XA Striking against other object with subsequent fall, initial encounter; Y93.89 Activity, other specified; Y92.89 Other specified places as the place of occurrence of the external cause; Y99.8 Other external cause status
CPT/HCPCS: 70450

== ENCOUNTER 2022-10-16 20:30 | Emergency (ER) | payer MEDICARE, OTHER ==
[~2022-10-16] VITALS: Ht 165.1 cm; Wt 52.3 kg
[2022-10-16 22:55] VITALS: PULSE 76; RESP 19; O2SAT 96
[2022-10-16 23:34] LABS: Basophils # (auto) 0.1 10 ^3/uL (0-0.2); Basophils % (auto) 0.5 % (0.0-2.0); Eosinophils # (auto) 0.5 10 ^3/uL (0-0.8); Eosinophils % (auto) 4.5 % (0.0-7.0); Hematocrit 38.4 % (41.0-53.0); Hemoglobin 12.6 g/dL (13.5-17.5); Lymphocytes # (auto) 1.7 10 ^3/uL (0.4-5.4); Lymphocytes % (auto) 14.6 % (10.0-50.0); Mean Corpuscular Hemoglobin 29.8 pg (28.0-32.0); Mean Corpuscular Hgb Conc. 32.7 g/dL (32.0-36.0); Mean Corpuscular Volume 91.2 fL (80.0-100.0); Monocytes # (auto) 0.7 10 ^3/uL (0-1.3); Monocytes % (auto) 6.3 % (0.0-12.0); Neutrophils # (auto) 8.5 10 ^3/uL (1.6-8.6); Neutrophils % (auto) 74.1 % (37.0-80.0); Nucleated Red Blood Cells % 0.1 %; Red Blood Cells 4.21 10^6/uL (4.5-5.90); Red Cell Distribution Width 14.7 % (11.8-14.3); White Blood Cell 11.4 10^3/uL (4.4-10.8)
[2022-10-16 23:47] LABS: INR 0.99 (0.9-1.15); Prothrombin Time 10.4 sec (9.3-11.8)
[2022-10-16 23:50] LABS: Albumin 3.9 g/dL (3.4-5.0); Calcium 8.9 mg/dL (8.5-10.1); Potassium 3.9 mmol/L (3.5-5.1)
[2022-10-16 23:53] LABS: BUN/Creatinine Ratio 20.2 (10.0-20.0)
[2022-10-16 23:55] LABS: Bilirubin, Total 0.1 mg/dL (0.2-1.0); Total Protein 7.8 g/dL (6.4-8.2)
[2022-10-17] MEDS ORDERED: LIDOCAINE 1% (LOCAL ANESTH.) PF 5ml SDV ID ONE (00:15)
[2022-10-17] MEDS ORDERED: TETANUS-DIPTH-ACEL PERTUSSIS 0.5ML SYR Tdap IM ONE (00:15)
[2022-10-17 05:00] VITALS: TEMP 98.4
[2022-10-17 08:50] VITALS: BP 97/64; PULSE 85; RESP 17; O2SAT 93
== END 2022-10-17 08:53 | disposition home or self-care (01) ==
LOC: ER 20:30 → EDBD 20:30 → ER 10-17 08:49
DX: S05.31XA Ocular laceration without prolapse or loss of intraocular tissue, right eye, initial encounter (principal); I10 Essential (primary) hypertension; Z86.73 Personal history of transient ischemic attack (TIA), and cerebral infarction without residual deficits; W18.39XA Other fall on same level, initial encounter; Y93.89 Activity, other specified; Y92.89 Other specified places as the place of occurrence of the external cause; Y99.8 Other external cause status
CPT/HCPCS: 12011; 36415; 70450; 70486; 72125; 80053; 84484; 85025; 85610; 90471; 90715

== ENCOUNTER 2022-10-21 16:55 | Inpatient (IN) | payer MEDICARE, OTHER ==
[~2022-10-21] VITALS: Ht 172.7 cm; Wt 54.2 kg
[2022-10-21 18:06] LABS: Basophils # (auto) 0.1 10 ^3/uL (0-0.2); Basophils % (auto) 0.9 % (0.0-2.0); Eosinophils # (auto) 0.5 10 ^3/uL (0-0.8); Eosinophils % (auto) 6.5 % (0.0-7.0); Hematocrit 33.9 % (41.0-53.0); Lymphocytes # (auto) 1.4 10 ^3/uL (0.4-5.4); Lymphocytes % (auto) 18.6 % (10.0-50.0); Mean Corpuscular Hemoglobin 29.7 pg (28.0-32.0); Mean Corpuscular Hgb Conc. 32.5 g/dL (32.0-36.0); Mean Corpuscular Volume 91.2 fL (80.0-100.0); Monocytes # (auto) 0.8 10 ^3/uL (0-1.3); Monocytes % (auto) 10.8 % (0.0-12.0); Neutrophils # (auto) 4.8 10 ^3/uL (1.6-8.6); Neutrophils % (auto) 63.2 % (37.0-80.0); Nucleated Red Blood Cells % 0.1 %; Red Blood Cells 3.72 10^6/uL (4.5-5.90); Red Cell Distribution Width 14.8 % (11.8-14.3); White Blood Cell 7.5 10^3/uL (4.4-10.8)
[2022-10-21 18:27] LABS: Albumin 3.6 g/dL (3.4-5.0); Calcium 8.8 mg/dL (8.5-10.1); Potassium 3.7 mmol/L (3.5-5.1)
[2022-10-21 18:30] LABS: BUN/Creatinine Ratio 21.2 (10.0-20.0); Bilirubin, Total 0.3 mg/dL (0.2-1.0); Total Protein 7.1 g/dL (6.4-8.2)
[2022-10-21 18:54] LABS: INR 1.06 (0.9-1.15); Partial Thromboplastin Time 27.9 SEC (24.5-34.5); Prothrombin Time 11.1 sec (9.3-11.8)
[2022-10-21] MEDS ORDERED: PIPERACILLIN-TAZOB 3.375GM 100 ML IV ONE (20:00)
[2022-10-21 20:05] LABS: Blood Alcohol < 3.0 mg/dL (<10); Magnesium 2.5 mg/dL (1.6-2.6)
[2022-10-21] MEDS ORDERED: PHENYTOIN IV DILANTIN 1,000 MG in SODIUM CHL 0.9% 250 ML IV ONE (20:30)
[2022-10-21] MEDS ORDERED: MORPHINE SULFATE INJ 2 MG/ml SYRG IV PRN (21:00)
[2022-10-21] MEDS ORDERED: NITROGLYCERIN 0.4 MG SL TAB SL PRN (21:00)
[2022-10-21] MEDS ORDERED: ONDANSETRON HCL 4 MG/2 ML VIAL IV PRN (21:00)
[2022-10-21] MEDS ORDERED: DOCUSATE SOD 100 MG CAP PO PRN (21:00)
[2022-10-21] MEDS ORDERED: ACETAMINOPHEN 325 MG TAB PO PRN (21:00)
[2022-10-21] MEDS: SODIUM CHLOR 0.9% PF (SALINE LOCK) 10ML VIAL/SYR IV SCH (22:14)
[2022-10-21 22:30] VITALS: PULSE 68; RESP 15; O2SAT 98
[2022-10-22 00:40] VITALS: PULSE 73; RESP 19; O2SAT 96
[2022-10-22] MEDS: cefTRIAXone 1GM/50ML D5W 50 ML IV SCH (01:26)
[2022-10-22] MEDS: AZITHROMYCIN 500MG/ 250ML 250 ML IV SCH (02:41)
[2022-10-22] MEDS: SODIUM CHLOR 0.9% PF (SALINE LOCK) 10ML VIAL/SYR IV SCH ×3 (06:02→21:43)
[2022-10-22 06:20] LABS: Potassium 3.9 mmol/L (3.5-5.1)
[2022-10-22 06:25] LABS: Basophils # (auto) 0 10 ^3/uL (0-0.2); Basophils % (auto) 0.5 % (0.0-2.0); Eosinophils # (auto) 0.3 10 ^3/uL (0-0.8); Hemoglobin 11.5 g/dL (13.5-17.5); Lymphocytes # (auto) 1.5 10 ^3/uL (0.4-5.4); Lymphocytes % (auto) 17.4 % (10.0-50.0); Mean Corpuscular Hgb Conc. 32.8 g/dL (32.0-36.0); Mean Corpuscular Volume 91.3 fL (80.0-100.0); Monocytes # (auto) 0.7 10 ^3/uL (0-1.3); Monocytes % (auto) 8.3 % (0.0-12.0); Neutrophils # (auto) 6.2 10 ^3/uL (1.6-8.6); Neutrophils % (auto) 70.8 % (37.0-80.0); Nucleated Red Blood Cells % 0.1 %; Red Blood Cells 3.84 10^6/uL (4.5-5.90); Red Cell Distribution Width 14.9 % (11.8-14.3); White Blood Cell 8.8 10^3/uL (4.4-10.8)
[2022-10-22 06:27] LABS: Albumin 3.1 g/dL (3.4-5.0); BUN/Creatinine Ratio 17.8 (10.0-20.0); Bilirubin, Total 0.3 mg/dL (0.2-1.0); Calcium 8.5 mg/dL (8.5-10.1)
[2022-10-22 07:51] VITALS: PULSE 75; RESP 17; O2SAT 96
[2022-10-22] MEDS ORDERED: PHENYTOIN SODIUM 100 MG CAP PO SCH (10:00)
[2022-10-22 19:30] VITALS: PULSE 63; RESP 17; O2SAT 97
[2022-10-22] MEDS: D5W/SOD CHL 0.45% 1,000 ML IV SCH (20:04)
[2022-10-22] MEDS ORDERED: LORazepam 2MG/ML-1ML VIAL IV ONE (21:45)
[2022-10-22 22:00] VITALS: BP 136/59; PULSE 66; RESP 16; TEMP 98.8; O2SAT 100
[2022-10-23] VITALS (10 sets, daily range): BP systolic 116–152; BP diastolic 59–91; PULSE 64–104; RESP 15–23; TEMP 36.7; O2SAT 97–100
[2022-10-23] MEDS: cefTRIAXone 1GM/50ML D5W 50 ML IV SCH ×2 (00:26→23:58)
[2022-10-23] MEDS: AZITHROMYCIN 500MG/ 250ML 250 ML IV SCH ×2 (01:08→01:11)
[2022-10-23] MEDS: SODIUM CHLOR 0.9% PF (SALINE LOCK) 10ML VIAL/SYR IV SCH ×3 (05:12→21:52)
[2022-10-23 07:14] LABS: Urine Bacteria NONE SEEN /hpf (None Seen); Urine Blood Negative /uL (Negative); Urine Clarity Clear (Clear); Urine Color Straw (Yellow); Urine Protein, UAD Negative (Negative); Urine Specific Gravity 1.009 (1.001-1.035); Urine Urobilinogen Normal (Negative); Urine WBC 3 /hpf (0 - 3)
[2022-10-23 08:16] LABS: Alcohol, Urine < 3.0 mg/dL (0-10); Amphetamine Screen, Urine NEGATIVE (NEGATIVE); Barbiturate Scree,Urine NEGATIVE (NEGATIVE); Benzodiazephine Screen, Urine NEGATIVE (NEGATIVE); Cannabinoid Screen, Urine NEGATIVE (NEGATIVE); Cocaine Screen, Urine NEGATIVE (NEGATIVE); Opiate Scree,Urine NEGATIVE (NEGATIVE); Phencyclidine Screen, Urine NEGATIVE (NEGATIVE)
[2022-10-23] MEDS: D5W/SOD CHL 0.45% 1,000 ML IV SCH ×2 (10:17→20:25)
[2022-10-23] MEDS ORDERED: LORazepam 2MG/ML-1ML VIAL IV PRN (10:45)
[2022-10-23] MEDS: PHENYTOIN SODIUM 50 MG/ML 2ML VIAL IV SCH ×2 (15:55→21:52)
[2022-10-23 22:27] LABS: Basophils # (auto) 0.1 10 ^3/uL (0-0.2); Eosinophils # (auto) 0.8 10 ^3/uL (0-0.8); Eosinophils % (auto) 5.5 % (0.0-7.0); Hematocrit 40.3 % (41.0-53.0); Hemoglobin 13.2 g/dL (13.5-17.5); Lymphocytes % (auto) 20.8 % (10.0-50.0); Mean Corpuscular Hemoglobin 29.9 pg (28.0-32.0); Mean Corpuscular Hgb Conc. 32.8 g/dL (32.0-36.0); Mean Corpuscular Volume 91.3 fL (80.0-100.0); Monocytes # (auto) 1.3 10 ^3/uL (0-1.3); Monocytes % (auto) 9.1 % (0.0-12.0); Neutrophils # (auto) 9.2 10 ^3/uL (1.6-8.6); Neutrophils % (auto) 63.6 % (37.0-80.0); Red Blood Cells 4.41 10^6/uL (4.5-5.90); Red Cell Distribution Width 14.9 % (11.8-14.3); White Blood Cell 14.4 10^3/uL (4.4-10.8)
[2022-10-23 22:59] LABS: Albumin 3.6 g/dL (3.4-5.0); Calcium 8.8 mg/dL (8.5-10.1); Potassium 3.8 mmol/L (3.5-5.1)
[2022-10-23 23:02] LABS: Bilirubin, Total 0.5 mg/dL (0.2-1.0)
[2022-10-24] VITALS (8 sets, daily range): BP systolic 105–155; BP diastolic 57–81; PULSE 81–105; RESP 16–22; TEMP 36.7; O2SAT 96–99
[2022-10-24] MEDS: AZITHROMYCIN 500MG/ 250ML 250 ML IV SCH (00:55)
[2022-10-24] MEDS: PHENYTOIN SODIUM 50 MG/ML 2ML VIAL IV SCH ×3 (06:00→22:00)
[2022-10-24] MEDS: SODIUM CHLOR 0.9% PF (SALINE LOCK) 10ML VIAL/SYR IV SCH ×3 (06:08→23:42)
[2022-10-24 06:10] LABS: Basophils # (auto) 0.1 10 ^3/uL (0-0.2); Basophils % (auto) 0.5 % (0.0-2.0); Eosinophils # (auto) 0.6 10 ^3/uL (0-0.8); Eosinophils % (auto) 4.6 % (0.0-7.0); Hematocrit 40.3 % (41.0-53.0); Hemoglobin 13.3 g/dL (13.5-17.5); Lymphocytes % (auto) 16.1 % (10.0-50.0); Mean Corpuscular Hemoglobin 30.3 pg (28.0-32.0); Mean Corpuscular Volume 91.8 fL (80.0-100.0); Monocytes # (auto) 1.3 10 ^3/uL (0-1.3); Monocytes % (auto) 10.9 % (0.0-12.0); Neutrophils # (auto) 8.3 10 ^3/uL (1.6-8.6); Neutrophils % (auto) 67.9 % (37.0-80.0); Nucleated Red Blood Cells % 0.1 %; Red Blood Cells 4.38 10^6/uL (4.5-5.90); White Blood Cell 12.2 10^3/uL (4.4-10.8)
[2022-10-24 06:41] LABS: Potassium 3.7 mmol/L (3.5-5.1)
[2022-10-24 06:45] LABS: BUN/Creatinine Ratio 12.9 (10.0-20.0); Calcium 8.8 mg/dL (8.5-10.1)
[2022-10-24] MEDS: D5W/SOD CHL 0.45% 1,000 ML IV SCH ×2 (09:45→20:45)
[2022-10-24] MEDS: cefTRIAXone 1GM/50ML D5W 50 ML IV SCH (23:42)
[2022-10-25] MEDS: AZITHROMYCIN 500MG/ 250ML 250 ML IV SCH (00:52)
[2022-10-25 05:00] VITALS: BP 136/70; PULSE 91; RESP 20; TEMP 100.3; O2SAT 99
[2022-10-25] MEDS: SODIUM CHLOR 0.9% PF (SALINE LOCK) 10ML VIAL/SYR IV SCH ×3 (05:50→22:18)
[2022-10-25] MEDS: PHENYTOIN SODIUM 50 MG/ML 2ML VIAL IV SCH ×3 (05:50→17:30)
[2022-10-25 08:00] VITALS: PULSE 79
[2022-10-25 08:58] VITALS: BP 127/77; PULSE 97; RESP 16; TEMP 99.7; O2SAT 98
[2022-10-25] MEDS: KETOROLAC TROMETH 30 MG/ML 1ML VIAL IV PRN (12:28)
[2022-10-25 14:42] LABS: Basophils # (auto) 0.1 10 ^3/uL (0-0.2); Basophils % (auto) 0.5 % (0.0-2.0); Eosinophils # (auto) 0.3 10 ^3/uL (0-0.8); Eosinophils % (auto) 2.1 % (0.0-7.0); Hemoglobin 12.4 g/dL (13.5-17.5); Lymphocytes # (auto) 1.6 10 ^3/uL (0.4-5.4); Lymphocytes % (auto) 12.5 % (10.0-50.0); Mean Corpuscular Hemoglobin 30.2 pg (28.0-32.0); Mean Corpuscular Hgb Conc. 33.7 g/dL (32.0-36.0); Mean Corpuscular Volume 89.8 fL (80.0-100.0); Monocytes # (auto) 1.7 10 ^3/uL (0-1.3); Monocytes % (auto) 13.1 % (0.0-12.0); Neutrophils # (auto) 9.1 10 ^3/uL (1.6-8.6); Neutrophils % (auto) 71.8 % (37.0-80.0); Nucleated Red Blood Cells % 0.1 %; Red Blood Cells 4.12 10^6/uL (4.5-5.90); Red Cell Distribution Width 14.6 % (11.8-14.3); White Blood Cell 12.7 10^3/uL (4.4-10.8)
[2022-10-25 14:51] LABS: Potassium 3.6 mmol/L (3.5-5.1)
[2022-10-25 14:59] LABS: Bilirubin, Total 0.6 mg/dL (0.2-1.0); Calcium 8.3 mg/dL (8.5-10.1); Total Protein 7.3 g/dL (6.4-8.2)
[2022-10-25] MEDS: D5W/SOD CHL 0.45% 1,000 ML IV SCH (15:15)
[2022-10-25 17:00] VITALS: BP 138/70; PULSE 73; RESP 16; TEMP 98.3; O2SAT 98
[2022-10-25] MEDS ORDERED: CLINIMIX PER PHARMACY 0 ML IV SCH (18:30)
[2022-10-25 20:00] VITALS: PULSE 73
[2022-10-25] MEDS ORDERED: AMINO ACID INFUSION IN D10W 1,000 ML IV NR (20:00)
[2022-10-25 20:09] LABS: Magnesium 2.4 mg/dL (1.6-2.6); Phosphorus 2.9 mg/dL (2.5-4.90)
[2022-10-25 22:00] VITALS: BP 135/66; PULSE 77; RESP 17; TEMP 99.8; O2SAT 97
[2022-10-25] MEDS ORDERED: FLEET ENEMA(ADULT) 135 ML PR ONE (22:15)
[2022-10-25] MEDS: ACCU-CHEK COMFORT CURVE STRIP VI SCH (23:32)
[2022-10-25] MEDS: InsuLIN REG 1unit/0.01ml Soln (100units/ml) SC SCH (23:33)
[2022-10-26] VITALS (7 sets, daily range): BP systolic 114–142; BP diastolic 53–86; PULSE 67–104; RESP 14–20; TEMP 97.7–100; O2SAT 95–98
[2022-10-26] MEDS ORDERED: DEXTROSE (50%) 50ML SYRG IV SCH
[2022-10-26] MEDS: PHENYTOIN SODIUM 50 MG/ML 2ML VIAL IV SCH ×4 (00:03→21:36)
[2022-10-26] MEDS: cefTRIAXone 1GM/50ML D5W 50 ML IV SCH ×2 (00:04→23:51)
[2022-10-26] MEDS: AZITHROMYCIN 500MG/ 250ML 250 ML IV SCH (01:07)
[2022-10-26] MEDS: D5W/SOD CHL 0.45% 1,000 ML IV SCH ×2 (01:45→16:30)
[2022-10-26] MEDS: SODIUM CHLOR 0.9% PF (SALINE LOCK) 10ML VIAL/SYR IV SCH ×3 (05:26→21:36)
[2022-10-26] MEDS: ACCU-CHEK COMFORT CURVE STRIP VI SCH ×4 (05:26→23:51)
[2022-10-26] MEDS: InsuLIN REG 1unit/0.01ml Soln (100units/ml) SC SCH ×4 (06:06→23:51)
[2022-10-26] MEDS: PANTOPRAZOLE 40 MG/10 ML VIAL INJ IV SCH (09:55)
[2022-10-26] MEDS: KETOROLAC TROMETH 30 MG/ML 1ML VIAL IV PRN ×2 (09:56→17:08)
[2022-10-26 12:53] LABS: Basophils # (auto) 0.1 10 ^3/uL (0-0.2); Basophils % (auto) 0.7 % (0.0-2.0); Eosinophils # (auto) 0.5 10 ^3/uL (0-0.8); Eosinophils % (auto) 4.3 % (0.0-7.0); Hematocrit 34.7 % (41.0-53.0); Hemoglobin 11.7 g/dL (13.5-17.5); Lymphocytes # (auto) 1.6 10 ^3/uL (0.4-5.4); Lymphocytes % (auto) 15.4 % (10.0-50.0); Mean Corpuscular Hemoglobin 30.3 pg (28.0-32.0); Mean Corpuscular Hgb Conc. 33.7 g/dL (32.0-36.0); Mean Corpuscular Volume 90.1 fL (80.0-100.0); Monocytes # (auto) 1.2 10 ^3/uL (0-1.3); Monocytes % (auto) 11.5 % (0.0-12.0); Neutrophils # (auto) 7.2 10 ^3/uL (1.6-8.6); Neutrophils % (auto) 68.1 % (37.0-80.0); Nucleated Red Blood Cells % 0.2 %; Red Blood Cells 3.85 10^6/uL (4.5-5.90); Red Cell Distribution Width 14.4 % (11.8-14.3); White Blood Cell 10.5 10^3/uL (4.4-10.8)
[2022-10-26 13:11] LABS: Calcium 8.2 mg/dL (8.5-10.1); Magnesium 2.4 mg/dL (1.6-2.6); Potassium 3.4 mmol/L (3.5-5.1)
[2022-10-26 13:14] LABS: BUN/Creatinine Ratio 19.4 (10.0-20.0); Bilirubin, Total 0.3 mg/dL (0.2-1.0); Phosphorus 2.8 mg/dL (2.5-4.90); Total Protein 6.8 g/dL (6.4-8.2)
[2022-10-26] MEDS ORDERED: POTASSIUM CHL 20MEQ/100ML 100 ML IV ONE (15:15)
[2022-10-26] MEDS ORDERED: AMINO ACID INFUSION IN D10W 1,000 ML IV NR (20:00)
[2022-10-26] MEDS ORDERED: FLEET ENEMA(ADULT) 135 ML PR ONE (22:00)
[2022-10-27] MEDS: AZITHROMYCIN 500MG/ 250ML 250 ML IV SCH (01:10)
[2022-10-27] MEDS: D5W/SOD CHL 0.45% 1,000 ML IV SCH ×2 (04:25→17:34)
[2022-10-27 05:00] VITALS: BP 117/51; PULSE 75; RESP 16; TEMP 98.7; O2SAT 95
[2022-10-27] MEDS: ACCU-CHEK COMFORT CURVE STRIP VI SCH ×3 (05:40→17:34)
[2022-10-27] MEDS: SODIUM CHLOR 0.9% PF (SALINE LOCK) 10ML VIAL/SYR IV SCH ×3 (05:40→22:18)
[2022-10-27] MEDS: PHENYTOIN SODIUM 50 MG/ML 2ML VIAL IV SCH ×3 (05:40→22:18)
[2022-10-27 05:45] LABS: Basophils # (auto) 0 10 ^3/uL (0-0.2); Basophils % (auto) 0.4 % (0.0-2.0); Eosinophils # (auto) 0.7 10 ^3/uL (0-0.8); Eosinophils % (auto) 7.8 % (0.0-7.0); Hemoglobin 11.2 g/dL (13.5-17.5); Lymphocytes # (auto) 1.4 10 ^3/uL (0.4-5.4); Mean Corpuscular Hemoglobin 30.4 pg (28.0-32.0); Mean Corpuscular Hgb Conc. 34.1 g/dL (32.0-36.0); Monocytes # (auto) 0.9 10 ^3/uL (0-1.3); Monocytes % (auto) 9.9 % (0.0-12.0); Neutrophils # (auto) 6.3 10 ^3/uL (1.6-8.6); Neutrophils % (auto) 66.9 % (37.0-80.0); Red Cell Distribution Width 14.4 % (11.8-14.3); White Blood Cell 9.5 10^3/uL (4.4-10.8)
[2022-10-27] MEDS: InsuLIN REG 1unit/0.01ml Soln (100units/ml) SC SCH ×3 (05:46→17:32)
[2022-10-27 06:15] LABS: Albumin 2.9 g/dL (3.4-5.0); BUN/Creatinine Ratio 20.5 (10.0-20.0); Calcium 8.5 mg/dL (8.5-10.1); Magnesium 2.3 mg/dL (1.6-2.6); Potassium 3.3 mmol/L (3.5-5.1)
[2022-10-27 06:17] LABS: Bilirubin, Total 0.2 mg/dL (0.2-1.0); Phosphorus 3.4 mg/dL (2.5-4.90); Total Protein 7.2 g/dL (6.4-8.2)
[2022-10-27 08:00] VITALS: PULSE 66
[2022-10-27] MEDS: KETOROLAC TROMETH 30 MG/ML 1ML VIAL IV PRN (09:22)
[2022-10-27] MEDS: PANTOPRAZOLE 40 MG/10 ML VIAL INJ IV SCH (09:23)
[2022-10-27] MEDS ORDERED: POTASSIUM CHL 20MEQ/100ML 100 ML IV ONE ×2 (10:30→14:15)
[2022-10-27 13:00] VITALS: BP 135/50; PULSE 64; RESP 16; TEMP 97.3; O2SAT 98
[2022-10-27 17:00] VITALS: BP 142/59; PULSE 99; RESP 17; TEMP 97; O2SAT 99
[2022-10-27 20:00] VITALS: PULSE 65
[2022-10-27] MEDS ORDERED: AMINO ACID INFUSION IN D10W 1,000 ML IV NR (20:00)
[2022-10-27 22:00] VITALS: BP 147/44; PULSE 63; RESP 17; TEMP 99.1; O2SAT 99
[2022-10-28] VITALS (7 sets, daily range): BP systolic 135–160; BP diastolic 52–86; PULSE 70–76; RESP 16; TEMP 98–99.5; O2SAT 96–99
[2022-10-28] MEDS: ACCU-CHEK COMFORT CURVE STRIP VI SCH ×5 (00:04→23:42)
[2022-10-28] MEDS: InsuLIN REG 1unit/0.01ml Soln (100units/ml) SC SCH ×5 (00:06→23:43)
[2022-10-28] MEDS: cefTRIAXone 1GM/50ML D5W 50 ML IV SCH ×2 (00:24→22:56)
[2022-10-28] MEDS: AZITHROMYCIN 500MG/ 250ML 250 ML IV SCH (01:35)
[2022-10-28 05:50] LABS: Albumin 2.8 g/dL (3.4-5.0); Calcium 8.3 mg/dL (8.5-10.1); Potassium 3.9 mmol/L (3.5-5.1)
[2022-10-28 05:53] LABS: BUN/Creatinine Ratio 14.8 (10.0-20.0); Bilirubin, Total 0.2 mg/dL (0.2-1.0); Phosphorus 2.8 mg/dL (2.5-4.90); Total Protein 6.8 g/dL (6.4-8.2)
[2022-10-28 05:58] LABS: Basophils # (auto) 0.1 10 ^3/uL (0-0.2); Basophils % (auto) 0.6 % (0.0-2.0); Eosinophils # (auto) 0.9 10 ^3/uL (0-0.8); Eosinophils % (auto) 10.1 % (0.0-7.0); Hematocrit 31.3 % (41.0-53.0); Hemoglobin 10.6 g/dL (13.5-17.5); Lymphocytes # (auto) 1.6 10 ^3/uL (0.4-5.4); Lymphocytes % (auto) 17.2 % (10.0-50.0); Mean Corpuscular Hemoglobin 30.7 pg (28.0-32.0); Mean Corpuscular Volume 90.4 fL (80.0-100.0); Neutrophils # (auto) 5.5 10 ^3/uL (1.6-8.6); Neutrophils % (auto) 61.1 % (37.0-80.0); Red Blood Cells 3.46 10^6/uL (4.5-5.90); Red Cell Distribution Width 14.5 % (11.8-14.3)
[2022-10-28] MEDS: PHENYTOIN SODIUM 50 MG/ML 2ML VIAL IV SCH ×3 (06:15→22:55)
[2022-10-28] MEDS: SODIUM CHLOR 0.9% PF (SALINE LOCK) 10ML VIAL/SYR IV SCH ×3 (06:16→22:55)
[2022-10-28] MEDS: D5W/SOD CHL 0.45% 1,000 ML IV SCH (06:38)
[2022-10-28] MEDS: PANTOPRAZOLE 40 MG/10 ML VIAL INJ IV SCH (08:19)
[2022-10-28] MEDS: KETOROLAC TROMETH 30 MG/ML 1ML VIAL IV PRN (15:56)
[2022-10-28] MEDS ORDERED: AMINO ACID INFUSION IN D10W 1,000 ML IV NR (20:00)
[2022-10-29] VITALS (7 sets, daily range): BP systolic 132–148; BP diastolic 49–91; PULSE 65–77; RESP 15–20; TEMP 98.4–100; O2SAT 96–98
[2022-10-29] MEDS: AZITHROMYCIN 500MG/ 250ML 250 ML IV SCH (00:01)
[2022-10-29] MEDS: PHENYTOIN SODIUM 50 MG/ML 2ML VIAL IV SCH (06:44)
[2022-10-29] MEDS: ACCU-CHEK COMFORT CURVE STRIP VI SCH ×4 (06:44→23:42)
[2022-10-29] MEDS: InsuLIN REG 1unit/0.01ml Soln (100units/ml) SC SCH ×4 (06:44→23:42)
[2022-10-29] MEDS: SODIUM CHLOR 0.9% PF (SALINE LOCK) 10ML VIAL/SYR IV SCH ×3 (06:45→23:42)
[2022-10-29] MEDS: PANTOPRAZOLE 40 MG/10 ML VIAL INJ IV SCH (08:18)
[2022-10-29 15:14] LABS: Alanine Aminotransferase 36 U/L (7-40); Albumin 3.6 g/dL (3.2-4.8); Alkaline Phosphatase 112 U/L (46-116); Anion Gap 7.2 (5-15); Aspartate Aminotransferase 47 U/L (13-40); BUN/Creatinine Ratio 15.9 (10.0-20.0); Blood Urea Nitrogen 46 mg/dL (9-23); Calcium 8.5 mg/dL (8.5-10.1); Carbon Dioxide 20.8 mmol/L (20-30); Chloride 103 mmol/L (98-107); Glucose 115 mg/dL (74-106); Magnesium 1.7 mg/dL (1.6-2.6); Phosphorus 3.8 mg/dL (2.4-5.1); Potassium 4.4 mmol/L (3.5-5.1); Sodium 131 mmol/L (136-145)
[2022-10-29 15:15] LABS: Bilirubin, Total 0.3 mg/dL (0.2-1.0); Total Protein 6.2 g/dL (5.7-8.2)
[2022-10-29] MEDS ORDERED: AMINO ACID INFUSION IN D10W 1,000 ML IV NR (20:00)
[2022-10-29] MEDS: cefTRIAXone 1GM/50ML D5W 50 ML IV SCH (23:42)
[2022-10-29] MEDS: PHENYTOIN SODIUM 100 MG CAP PO SCH (23:42)
[2022-10-30] MEDS: AZITHROMYCIN 500MG/ 250ML 250 ML IV SCH (00:26)
[2022-10-30 04:57] VITALS: BP 151/55; PULSE 79; RESP 18; TEMP 99.1; O2SAT 97
[2022-10-30] MEDS: PHENYTOIN SODIUM 100 MG CAP PO SCH ×2 (05:34→14:40)
[2022-10-30] MEDS: SODIUM CHLOR 0.9% PF (SALINE LOCK) 10ML VIAL/SYR IV SCH ×2 (05:35→14:00)
[2022-10-30] MEDS: ACCU-CHEK COMFORT CURVE STRIP VI SCH ×2 (05:35→12:17)
[2022-10-30] MEDS: InsuLIN REG 1unit/0.01ml Soln (100units/ml) SC SCH ×2 (05:35→12:00)
[2022-10-30 08:00] VITALS: BP 128/50; PULSE 72; RESP 16; TEMP 98.1; O2SAT 96
[2022-10-30 09:00] VITALS: BP_SYST 128; BP_SYST 138; BP_DIAS 50; BP_DIAS 95; PULSE 104; PULSE 75; RESP 16; TEMP 98.1; TEMP 98.2; O2SAT 96; O2SAT 99
[2022-10-30] MEDS: PANTOPRAZOLE 40 MG/10 ML VIAL INJ IV SCH (10:25)
[2022-10-30 13:38] VITALS: BP 128/50; PULSE 75; RESP 16; TEMP 98.1; O2SAT 96
[2022-10-30 14:20] LABS: Alanine Aminotransferase 37 U/L (7-40); Albumin 3.7 g/dL (3.2-4.8); Alkaline Phosphatase 115 U/L (46-116); Aspartate Aminotransferase 37 U/L (13-40); BUN/Creatinine Ratio 29.8 (10.0-20.0); Calcium 8.9 mg/dL (8.5-10.1); Chloride 106 mmol/L (98-107); Glucose 117 mg/dL (74-106); Magnesium 1.8 mg/dL (1.6-2.6); Phosphorus 3.4 mg/dL (2.4-5.1); Potassium 4.4 mmol/L (3.5-5.1); Sodium 138 mmol/L (136-145)
[2022-10-30 14:21] LABS: Bilirubin, Total 0.2 mg/dL (0.2-1.0); Total Protein 6.6 g/dL (5.7-8.2)
[2022-10-30 14:43] LABS: Blood Urea Nitrogen 36 mg/dL (9-23)
== END 2022-10-30 16:07 | disposition home health service (06) | DRG 100 ==
LOC: ER 16:55 → EDBD 16:55 → TELE 20:56 → TELE-WESTW 10-22 23:10 → TELE-E-ADS 10-24 21:22
PROVIDERS: ADMIT Internal Medicine Pulmonary Disease; ATTEND Internal Medicine
PROC: 05HC33Z Insertion of Infusion Device into Left Basilic Vein, Percutaneous Approach (ICD-10-PCS; principal; 2022-10-26)
PROC: B54NZZA Ultrasonography of Left Upper Extremity Veins, Guidance (ICD-10-PCS; 2022-10-26)
DX: G40.909 Epilepsy, unspecified, not intractable, without status epilepticus (principal); J18.9 Pneumonia, unspecified organism; E44.1 Mild protein-calorie malnutrition; I69.351 Hemiplegia and hemiparesis following cerebral infarction affecting right dominant side; Z68.1 Body mass index [BMI] 19.9 or less, adult; I10 Essential (primary) hypertension; R29.6 Repeated falls; Z83.3 Family history of diabetes mellitus; Z82.62 Family history of osteoporosis; Z82.5 Family history of asthma and other chronic lower respiratory diseases; Z82.49 Family history of ischemic heart disease and other diseases of the circulatory system; Z82.3 Family history of stroke; Z82.0 Family history of epilepsy and other diseases of the nervous system; Z81.8 Family history of other mental and behavioral disorders; Z80.8 Family history of malignant neoplasm of other organs or systems; Z80.42 Family history of malignant neoplasm of prostate; Z80.3 Family history of malignant neoplasm of breast; Z80.1 Family history of malignant neoplasm of trachea, bronchus and lung; Z80.0 Family history of malignant neoplasm of digestive organs; I69.320 Aphasia following cerebral infarction; I69.322 Dysarthria following cerebral infarction; R13.12 Dysphagia, oropharyngeal phase
CPT/HCPCS: 36415; 70450; 71045; 71250; 72125; 74176; 76775; 80048; 80053; 80185; 80307; 80320; 81001; 82962; 83605; 83735; 84100; 84484; 85025; 85610; 85730; 87040; 92610; 95819; 96365; 97110; 97116; 97163; 97530; C9113; G0378; J0696; J1815; J1885; J2543; J3480

== ENCOUNTER 2022-12-02 17:48 | Emergency (ER) | payer MEDICARE, OTHER ==
[~2022-12-02] VITALS: Ht 170.2 cm; Wt 72.7 kg
[2022-12-02 18:25] VITALS: PULSE 75; RESP 18; O2SAT 99
[2022-12-02 19:07] LABS: Basophils # (auto) 0.1 10 ^3/uL (0-0.2); Basophils % (auto) 0.8 % (0.0-2.0); Eosinophils # (auto) 0.4 10 ^3/uL (0-0.8); Eosinophils % (auto) 4.1 % (0.0-7.0); Hematocrit 33.9 % (41.0-53.0); Hemoglobin 11.3 g/dL (13.5-17.5); Lymphocytes # (auto) 1.6 10 ^3/uL (0.4-5.4); Lymphocytes % (auto) 16.3 % (10.0-50.0); Mean Corpuscular Hemoglobin 30.6 pg (28.0-32.0); Mean Corpuscular Hgb Conc. 33.4 g/dL (32.0-36.0); Mean Corpuscular Volume 91.7 fL (80.0-100.0); Monocytes # (auto) 0.7 10 ^3/uL (0-1.3); Monocytes % (auto) 6.9 % (0.0-12.0); Neutrophils # (auto) 7.1 10 ^3/uL (1.6-8.6); Neutrophils % (auto) 71.9 % (37.0-80.0); Red Cell Distribution Width 14.5 % (11.8-14.3); White Blood Cell 9.8 10^3/uL (4.4-10.8)
[2022-12-02 19:16] LABS: Alanine Aminotransferase 27 U/L (7-40); Albumin 4.5 g/dL (3.2-4.8); Alkaline Phosphatase 112 U/L (46-116); Anion Gap 5 (5-15); Aspartate Aminotransferase 33 U/L (13-40); BUN/Creatinine Ratio 19.5 (10.0-20.0); Blood Urea Nitrogen 23 mg/dL (9-23); Calcium 9.4 mg/dL (8.7-10.4); Carbon Dioxide 29 mmol/L (20-30); Chloride 107 mmol/L (98-107); Glucose 105 mg/dL (74-106); Potassium 4.2 mmol/L (3.5-5.1); Sodium 141 mmol/L (136-145)
[2022-12-02 19:17] LABS: Bilirubin, Total 0.3 mg/dL (0.2-1.0); Total Protein 8.3 g/dL (5.7-8.2)
[2022-12-02] MEDS ORDERED: PHEN1CAP60 PO (19:54)
[2022-12-02] MEDS ORDERED: PHENYTOIN SODIUM 100 MG CAP PO ONE (20:00)
[2022-12-02 20:30] VITALS: PULSE 72; RESP 18; O2SAT 99
[2022-12-03 07:41] VITALS: BP 120/56; PULSE 63; RESP 17; TEMP 97.4; O2SAT 99
== END 2022-12-03 04:59 | disposition home or self-care (01) ==
LOC: ER 17:48 → EDBD 17:48 → ER 12-03 04:59
DX: S01.01XA Laceration without foreign body of scalp, initial encounter (principal); I10 Essential (primary) hypertension; Z86.73 Personal history of transient ischemic attack (TIA), and cerebral infarction without residual deficits; W18.39XA Other fall on same level, initial encounter; Y93.89 Activity, other specified; Y92.89 Other specified places as the place of occurrence of the external cause; Y99.8 Other external cause status
CPT/HCPCS: 12001; 36415; 70450; 80053; 80185; 85025

== ENCOUNTER 2023-01-31 23:13 | Emergency (ER) | payer OTHER, MEDICARE ==
[~2023-01-31] VITALS: Ht 172.7 cm; Wt 42.9 kg
[2023-01-31 23:25] VITALS: BP 113/55; PULSE 74; RESP 18; O2SAT 97
[2023-02-01 00:12] LABS: Urine Bacteria NONE SEEN /hpf (None Seen); Urine Blood 2+ /uL (Negative); Urine Clarity CLOUDY (Clear); Urine Color Yellow (Yellow); Urine Mucus FEW (None Seen); Urine Protein, UAD 3+ (Negative); Urine Specific Gravity 1.021 (1.001-1.035); Urine Urobilinogen Normal (Negative); Urine WBC 897 /hpf (0 - 3); Urine WBC Clumps PRESENT /hpf (None Seen); Urine pH 6.5 (5.0-8.0)
== END 2023-02-01 02:00 | disposition left against medical advice (07) ==
LOC: ER 23:13
DX: T83.098A Other mechanical complication of other urinary catheter, initial encounter (principal); Z53.21 Procedure and treatment not carried out due to patient leaving prior to being seen by health care provider; Y92.89 Other specified places as the place of occurrence of the external cause
CPT/HCPCS: 81001

== ENCOUNTER 2024-03-18 14:59 | Emergency (ER) | payer MEDICARE, OTHER ==
[~2024-03-18] VITALS: Ht 167.6 cm; Wt 54.0 kg
[~2024-03-18 14:59] MED LIST changes: +PHEN1CAP38 PO; -PHEN1CAP60 PO
--- NOTE | 2024-03-18 15:21 | ED.PDOC ---
SOB-HPI HPI Comments 78 Y M YONY with PMHX of HTN and seizures presents to the ED with CC of cough. Per EMS, patient has been experiencing productive cough x1week. Per EMS, patient was just released from hospice 2weeks ago and caregiver was concerned due to productive cough symptoms not subsiding. Patient denies fever, chills, cough, body aches, or fever. Chief Complaint: Cough Time Seen by MD: 15:19 Primary Care Provider: UNKOWN Reviewed notes: Nurses Notes, Medications, Allergies Information Source: Patient, Emergency Med Personnel Mode of Arrival: EMS Severity: Mild Timing: Days Duration: Since onset Context: At Rest PE Risk Factors: None History of: None Prehospital treatment: None Modifying Factors: Nothing Associated Signs and Symptoms: Cough If cough with SOB: Non-Productive Past Medical History PAST MEDICAL HISTORY: CVA, HTN, Seizures Surgical History: Denies all surgeries Family History Family History: Reviewed,noncontributory to illness Social History Smoker: Non-Smoker Alcohol: Denies ETOH Use Drugs: Denies Drug Use Lives In: Assisted Care Constitutional: denies: chills, diaphoresis, fatigue, fever, malaise, sweats, weakness, others EENTM: denies: blurred vision, double vision, ear bleeding, ear discharge, ear drainage, ear pain, ear ringing, eye pain, eye redness, hearing loss, mouth pa in, mouth swelling, nasal discharge, nose bleeding, nose congestion, nose pain, photophobia, tearing, throat pain, throat swelling, voice changes, others Respiratory: reports: cough; denies: hemoptysis, orthopnea, SOB at rest, shortness of breath, SOB with excertion, stridor, wheezing, others Cardiovascular: denies: chest pain, dizzy spells, diaphoresis, Dyspnea on exertion, edema, irregular heart beat, left arm pain, lightheadedness, palpitat ions, PND, syncope, others Gastrointestinal: denies: abdomen distended, abdominal pain, blood streaked bow els, constipated, diarrhea, dysphagia, difficulty swallowing, hematemesis, melena, nausea, poor appetite, poor fluid intake, rectal bleeding, rectal pain, vomiting, others Genitourinary: denies: burning, dysuria, flank pain, frequency, hematuria, incontinence, penile discharge, penile sore, pain, testicle pain, testicle swelling, urgency, others Neurological: denies: dizziness, fainting, headache, left sided numbness, left sided weakness, numbness, paresthesia, pre-existing deficit, right sided numbness, right sided weakness, seizure, speech problems, tingling, tremors, weakness, others Musculoskeletal: denies: back pain, gout, joint pain, joint swelling, muscle pain, muscle stiffness, neck pain, others Integumetry: denies: bruises, change in color, change in hair/nails, dryness, laceration, lesions, lumps, rash, wounds, others Allergic/Immunocompromised: denies: Difficulty Healing, Frequent Infections, Hives, Itching, others Hematologic/Lymphatic: denies: anemia, blood clots, easy bleeding, easy bruising, swollen glands, others Endocrine: denies: excessive hunger, excessive sweating, excessive thirst, excessive urination, flushing, intolerance to cold, intolerance to heat, unexplained weight gain, unexplained weight loss, others Psychiatric: denies: anxiety, bipolar disorder, depression, hopeless, panic disorder, schizophrenia, sleepless, suicidal, others All Other Systems: Reviewed and Negative Physical Exam General Appearance: No Apparent Distress HEENT: Normal ENT Inspection, Pharynx Normal, TMs Normal Neck: Full Range of Motion, Non-Tender, Normal, Normal Inspection Respiratory: Chest Non-Tender, Lungs Clear, No Accessory Muscle Use, No Respiratory Distress, Normal Breath Sounds Cardiovascular: No Edema, No JVD, No Murmur, No Gallop, Normal Peripheral Pulses, Regular Rate/Rhythm Breast Exam: Deferred Gastrointestinal: No Organomegaly, Non Tender, No Pulsatile Mass, Normal Bowel Sounds, Soft Genitalia: Deferred Pelvic: Deferred Rectal: Deferred Extremities: No calf tenderness, Normal capillary refill, Normal inspection, Normal range of motion, Non-tender, No pedal edema Musculoskeletal : Apperance: Normal Neurologic: Alert, bezel cutter II-XII nml as Tested, No Motor Deficits, Normal Affect, Normal Mood, No Sensory Deficits Cerebellar Function: Normal Reflexes: Normal Skin: Dry, Normal Color, Warm Lymphatic: No Adenopathy Was a procedure done? Was a procedure done?: No Differential Dx Differential Diagnosis: Bronchitis, Pneumonia, Sinusitis, Pharyngitis X-Ray, Labs, Meds, VS Vital Signs Date Time Temp Pulse Resp B/P (MAP) Pulse Ox O2 Delivery O2 Flow Rate FiO2 03/18/24 15:13 16 96 Room Air* 0 21 03/18/24 15:09 97.2 94 16 128/63 (84) 96 The chest x-ray shows: IMPRESSION: 1. Decreased pulmonary prominence in the mass in the right upper lung field. 2. 1 cm pulmonary density left lower lobe less likely superimposed rib densities however if the possibility of the pulmonary nodule is of clinical concern recommend CT scan of the chest. The patient was being discharged at this time The patient will return to the emergency department's condition worsens. The patient is to follow up with the primary care doctor Images Reviewed?: Images reviewed and evaluated by me Time of 1ST Reevaluation: 15:49 Reevaluation 1ST: Unchanged Patient Education/Counseling: Diagnosis, Treatment Family Education/Counseling: No Family Present Departure 1 Departure Time of Disposition: 16:13 Impression: Primary Impression: Viral syndrome Disposition: 01 HOME / SELF CARE / HOMELESS Condition: Fair Discharged With: Self Critical Care Note Critical Care Time?: No Stability Stability form required: No Heart Score Heart Score: Heart Score Response (Comments) Value History N/A 0 EKG N/A 0 Age N/A 0 Risk Factors N/A 0 Troponin N/A 0 Total 0 I personally scribed for MARIBEL GARDNER MD ([email or web address]) on 03/18/24 at 15:21. Electronically submitted by Delmy Suh ([email or web address]). I personally scribed for MARIBEL GARDNER MD ([email or web address]) on 03/18/24 at 15:26. Electronically submitted by Delmy Suh ([email or web address]). MARIBEL GARDNER MD Mar 18, 2024 15:21
--- NOTE | 2024-03-18 16:06 | DVH ---
XY CHEST TWO VIEWS ROUTINE CLINICAL HISTORY: cough COMPARISON: None TECHNIQUE: Frontal and lateral view of the chest was obtained FINDINGS: Lines and Tubes: None Lungs: Decreased prominence to pulmonary density in the right upper lung field. 1 cm density in the l eft lower lung field most likely fortuitous confluence of superimposed ribs. If pulmonary nodules of clinical concern recommend CT chest. Pleura: No effusion. No pneumothorax. Cardiomediastinal contours: Unremarkable Bones: No acute osseous abnormality. IMPRESSION: 1. Decreased pulmonary prominence in the mass in the right upper lung field. 2. 1 cm pulmonary density left lower lobe less likely superimposed rib densities however if the possi bility of the pulmonary nodule is of clinical concern recommend CT scan of the chest. .
[2024-03-18 17:02] VITALS: BP 131/71; PULSE 97; RESP 18; TEMP 98.1; O2SAT 95
== END 2024-03-18 16:14 | disposition home or self-care (01) ==
LOC: EDBD 14:59 → EDUNIT# 14:59 → ER 14:59
DX: B34.9 Viral infection, unspecified (principal); I10 Essential (primary) hypertension; Z86.73 Personal history of transient ischemic attack (TIA), and cerebral infarction without residual deficits
CPT/HCPCS: 71046